=== PATIENT | female | born 1965 | race Caucasian/White ===

== ENCOUNTER 2016-12-22 14:11 | Outpatient (CLI) | payer OTHER ==
[2016-07-02 17:27] VITALS: BP 91/51
[2016-12-22 14:32] LABS: eGFR (African) > 60; eGFR (Non-African) > 60
[2016-12-22 15:19] LABS: BASOPHILS % 0.4 (0.0-1.5); EOSINOPHILS % 4.6 % (0.0-6.8); MEAN CORPUSCULAR HEMOGLOBIN 28.2 pg (28.0-34.0); MEAN CORPUSCULAR VOLUME 88.2 fl (80.0-100.0); NEUTROPHILS # 5.1 # k/uL (1.4-7.7)
== END 2016-12-22 14:12 ==
LOC: LABRHC 14:11
PROVIDERS: ATTEND Physician Assistant
DX: R06.02 Shortness of breath (principal)
CPT/HCPCS: 80053; 83880; 85025

== ENCOUNTER 2017-01-09 09:09 | Inpatient (IN) | payer OTHER ==
[2017-01-09] MEDS ORDERED: fentaNYL CITRATE/PF 100 MCG/ 2ML AMP IVP ONE (09:53)
[2017-01-09 10:12] LABS: BASOPHILS % 0.5 (0.0-1.5); EOSINOPHILS % 2.4 % (0.0-6.8); MEAN CORPUSCULAR HEMOGLOBIN 28.6 pg (28.0-34.0); MEAN CORPUSCULAR VOLUME 87.4 fl (80.0-100.0); NEUTROPHILS # 6.2 # k/uL (1.4-7.7)
[2017-01-09] MEDS ORDERED: cefTRIAXone SODIUM ADVANTAGE 1 GM VIAL.PORT IV ONE (10:23)
[2017-01-09] MEDS ORDERED: 0.9 % SODIUM CHLORIDE 100 ML IV ONE (10:24)
[2017-01-09 10:27] LABS: eGFR (African) > 60; eGFR (Non-African) > 60
[2017-01-09] MEDS: cefTRIAXone SODIUM 1 GM in 0.9 % SODIUM CHLORIDE 50 ML IV SCH (10:28)
--- NOTE | 2017-01-09 11:14 | ED Physician Documentation ---
General Adult - HISTORIAN Historian: patient - HPI Stated Complaint: Bilateral Leg Pain Chief Complaint: Lower Extremity Problem Onset: other (3-4 weeks) Timing: still present Further Comments: yes (Patienthad been having some swelling and weeping from both legs. Has been felt to have soem cellulitius to the lower extremities. Was started on some Cipro and diclofenac. Seems to help some. Over the last 24-48 hours has started to have some increasing pain and redness, and pain.) - ROS CONST: fever, chills CVS/RESP: denies: chest pain, shortness of breath GI/: denies: abdominal pain, problems urinating, nausea - PAST HX Past History: COPD, CHF, hypertension, other (heart murmur) Other History: other (sleep apnea, bipolar, ) Surgeries/Procedures: BTL, other (tonsilectomy, partial hysterrectomy) Immunizations: denies: influenza, pneumovax Allergies/Adverse Reactions: Allergies Allergy/AdvReac Type Severity Reaction Status Date / Time olmesartan medoxomil Allergy Severe Anaphylaxis Verified 07/02/16 14:40 [From Benicar] Penicillins Allergy Severe Anaphylaxis Verified 07/02/16 14:40 Sulfa (Sulfonamide Allergy Intermediate Hives Verified 07/02/16 14:40 Antibiotics) [Sulfa(Sulfonamide Antibiotics)] fluticasone propionate Allergy Mild Rash, mild Verified 07/02/16 14:40 [From Advair Diskus] salmeterol xinafoate Allergy Mild Rash, mild Verified 07/02/16 14:40 [From Advair Diskus] Home Medications: Ambulatory Orders Medication Instructions Recorded Venlafaxine HCl [Effexor Xr] 150 mg PO DAILY #30 av 02/03/13 Lisinopril [Prinivil] 10 mg PO DAILY 07/02/16 Albuterol Sulfate [Proair HFA] 01/09/17 Furosemide [Lasix] 40 mg PO DAILY 01/09/17 - SOCIAL HX Smoking History: non-smoker Alcohol Use: none Drug Use: none - FAMILY HX Family History: Yes (breast, asthma cancer mother) - VITAL SIGNS Vital Signs: Vital Signs Temp Pulse Resp BP Pulse Ox 98.1 F 118 H 20 134/61 95 01/09/17 09:10 01/09/17 09:10 01/09/17 09:10 01/09/17 09:10 01/09/17 09:10 - REVIEWED ASSESSMENTS Nursing Assessment Reviewed: Yes Vitals Reviewed: Yes General Adult Physical Exam - PHYSICAL EXAM GENERAL APPEARANCE: moderate distress NECK: normal inspection RESPIRATORY: no resp distress, chest non-tender, breath sounds normal. No: wheezes, rales, rhonchi CVS: reg rate & rhythm, heart sounds normal, equal pulses, no murmur, no gallop ABDOMEN: soft, no organomegaly, normal bowel sounds, no abdominal bruit, no distension, non-tender SKIN: other (multiple open wounds that are weeping to the posterior claf area. Erythema to the calves bialterally) EXTREMITIES: other (swelling bilateral) NEURO: oriented X3, CN's nml as tested, mood/affect nml, cognition normal Discharge Clincal Impression: Cellulitis of leg without foot Referrals: Be Lugo PA [PHYSICIAN CRAB PICKER] - 2 Days Home Medications: Ambulatory Orders Venlafaxine HCl [Effexor Xr] 150 mg PO DAILY #30 av 02/03/13 Lisinopril [Prinivil] 10 mg PO DAILY 07/02/16 Albuterol Sulfate [Proair HFA] 01/09/17 Furosemide [Lasix] 40 mg PO DAILY 01/09/17 Condition: Stable Disposition: ADMITTED INPATIENT Decision to Admit: [id number] Date of Decison to Admit: 01/09/17 Decision Time: 11:11
[2017-01-09] MEDS ORDERED: ALBUTEROL 90MCG/PUFF INHALER IH PRN (12:04)
[2017-01-09] MEDS ORDERED: LISINOPRIL 5 MG TABLET PO ONE (12:11)
[2017-01-09] MEDS ORDERED: QUEtiapine FUMARATE 25 MG TABLET PO ONE (12:16)
[2017-01-09] MEDS: ENOXAPARIN SODIUM 30 MG/0.3 ML DISP.SYRIN SQ SCH (13:00)
[2017-01-09 13:03] VITALS: BMI 54.8
[2017-01-09] MEDS: ACETAMINOPHEN 325 MG TABLET PO PRN ×2 (13:05→21:13)
[2017-01-09] MEDS ORDERED: ENOXAPARIN SODIUM 30 MG/0.3 ML DISP.SYRIN SQ ONE ×2 (13:25→21:15)
[2017-01-09] MEDS: traMADol HCL 50 MG TABLET PO PRN ×2 (14:45→20:14)
[2017-01-09] MEDS ORDERED: METOPROLOL TARTRATE 50 MG TABLET ONE (18:26)
--- NOTE | 2017-01-09 18:50 | History and Physical Report ---
History of Present Illnes - History of Present Illness Reason for Visit: Lower extremity wounds with assocaited infection. Pt failed outpatient tx History of Present Illness: 51 year old female arrived at the ER by cab this morning for bilateral lower extremity edema with weeping wounds on both legs. She notes she has been being treated in outpatient clinic for this issue for the last month. She notes she is currently taking ciprofloxacin and has been wrapping her legs. She states she was seen twice for Unna Boot changes. She notes initially the areas seemed to be getting better but now are worse again with increased redness in both lower legs. She notes this has been a issue she has been battling over the last several years with the most recent issues starting about one month ago. She notes she has a history of CHF and is on Diuretics to aid with lower extremity swelling when she remembers to take them. She denies any formal diagnosis of diabetes but notes recent blood work showed an elevated blood glucose. She states she has been trying to diet and has lost a few pounds recently. She denies any shortness of breath at time of interview but does have her albuterol inhaler at bedside as she has a history of asthma. She notes she does have a small ulcer on her left carrera that is painful. She states both of her legs are sore to touch. She denies any other concerns at time of interview. - Past Medical History Cardiac: CHF, HTN Pulmonary: Asthma COTTON JAMMER: denies: Seizure Gastrointestinal: denies: Constipation, GI bleed Psych: Anxiety, Bipolar, Depression, Panic Musculoskeletal: Osteoarthritis Rheumatologic: denies: Rheumatoid arthritis Endocrine: denies: Diabetes (Recent blood glucose levels have been elevated) Dermatology: Other (infection in lower legs) - Past Surgical History Past Surgical History: Hysterectomy (total), Tubal Ligation, Other ( Tonsillectomy) - Past Social History Smoke: Quit (10 years ago but lives with a 1-2ppd smoker who smokes in the house ) Alcohol: None Drugs: None Lives: With Family - Health Maintenance Health Maintenance: Pneumococcal Vaccine, Mammogram (last year), Colonoscopy ( several year). denies: Influenza Vaccine Pneumonia Vaccine: No Resuscitation Status: Full Code Review of Systems - Review of Systems Constitutional: Fever (last week 99 no fever today). negative: Chills Eyes: negative: vision change, conjunctivae inflammation ENT: Nose Congestion (mild). negative: Ear Pain, Nose Pain, Nose Discharge, Throat Pain Respiratory: Cough (Chronic). negative: Shortness of Breath Cardiovascular: negative: Chest Pain, Light Headedness Gastrointestinal: negative: Nausea, Vomiting, Diarrhea, Constipation Genitourinary: negative: Dysuria, Frequency, Incontinence Musculoskeletal: Leg Pain (related to the infection) Skin: Other (weeping lesions on bilateral lower extremities. ulcer on left lower carrera) Neurological: Weakness (generalized) - Medications/Allergies Allergies/Adverse Reactions: Allergies Allergy/AdvReac Type Severity Reaction Status Date / Time olmesartan medoxomil Allergy Severe Anaphylaxis Verified 07/02/16 14:40 [From Benicar] Penicillins Allergy Severe Anaphylaxis Verified 07/02/16 14:40 Sulfa (Sulfonamide Allergy Intermediate Hives Verified 07/02/16 14:40 Antibiotics) [Sulfa(Sulfonamide Antibiotics)] fluticasone propionate Allergy Mild Rash, mild Verified 07/02/16 14:40 [From Advair Diskus] salmeterol xinafoate Allergy Mild Rash, mild Verified 07/02/16 14:40 [From Advair Diskus] Home Medications: Home Medications Albuterol Sulfate [Proair HFA] 01/09/17 Furosemide [Lasix] 40 mg PO DAILY 01/09/17 Current Inpatient Medications: Current Inpatient Medications Acetaminophen (Tylenol) 650 mg PO Q6 PRN PRN Reason: PAIN Albuterol (Ventolin Hfa) 2 puff IH Q4-6 PRN PRN Reason: Wheezing Enoxaparin Sodium (Lovenox) 30 mg SQ Q12H [facility] Stop: 01/16/17 00:01 Furosemide (Lasix) 40 mg PO DAILY [facility] Hydroxyzine HCl (Atarax) 100 mg PO HS [facility] Hydroxyzine HCl (Atarax) 50 mg PO DAILY [facility] Ceftriaxone Sodium 1 gm/ (Sodium Chloride) 50 mls @ 100 mls/hr IV QD [facility] Last Admin: 01/09/17 10:28 Dose: 100 mls/hr Lisinopril (Prinivil) 10 mg PO DAILY ONE Stop: 01/09/17 12:12 Metolazone (Zaroxolyn) 10 mg PO DAILY [facility] Metoprolol Tartrate (Lopressor) 25 mg PO BID [facility] Quetiapine Fumarate (Seroquel) 200 mg PO HS ONE Stop: 06/03/17 12:17 Venlafaxine HCl (Effexor Xr) 150 mg PO DAILY [facility]ALL Exam - Exam Vital Signs: Vital Signs (72 hours) 01/09/17 11:20 Pulse Rate [ 98 H Pulse ox] Respiratory 18 Rate Blood Pressure 120/58 [Left Arm] O2 Sat by Pulse 96 Oximetry General: Alert, Oriented to Person, Oriented to Place, Oriented to Time, Cooperative, No acute distress, Morbidly Obese HEENT: Atraumatic, EOMI, Mouth Mucous membr. moist/[place], Nose Mucous membr. moist/[place] Neck: Normal Range of Motion Lungs: Speaks full Sentences, Wheezes (very mild), Decreased Air Movement Cardiovascular: Murmur (Followed by Dr. Valle) Murmur: Systolic Murmur Peripheral Edema: Bilateral peripheral edema with oozing open areas. Peripheral Pulses: diminished Abdomen: Normal bowel sounds, Soft, No tenderness Integumentary: [place], Cellulitis (lower extremities.), Ulcer (approximatley 2cm stage 2 ulcer on left lower carrera), Erythema (Bilateral lower extremities) Extremities: No edema (bilateral ). No: No clubbing, No cyanosis Neurological: Normal speech, Strength Equal Bilat, Generalized Weakness Psych/Mental Status: Mental status NL, Mood NL, Appropriate Affect - Laboratory Results Laboratory Results: Active Medications Generic Name Dose Route Start Last Admin Trade Name Freq PRN Reason Stop Dose Admin Acetaminophen 650 mg 01/09/17 12:02 Tylenol PO Q6 PRN PAIN Albuterol 2 puff 01/09/17 12:04 Ventolin Hfa IH Q4-6 PRN Wheezing Enoxaparin Sodium 30 mg 01/09/17 12:00 Lovenox SQ 01/16/17 00:01 Q12H NIALL Furosemide 40 mg 01/10/17 09:00 Lasix PO DAILY [facility] Hydroxyzine HCl 100 mg 01/09/17 21:00 Atarax PO HS [facility] Hydroxyzine HCl 50 mg 01/10/17 09:00 Atarax PO DAILY [facility] Ceftriaxone Sodium 1 gm/ 50 mls @ 100 mls/hr 01/09/17 11:00 01/09/17 10:28 Sodium Chloride IV 100 mls/hr QD NIALL Administration Lisinopril 10 mg 01/09/17 12:11 Prinivil PO 01/09/17 12:12 DAILY ONE Metolazone 10 mg 01/10/17 09:00 Zaroxolyn PO DAILY NIALL Metoprolol Tartrate 25 mg 01/09/17 21:00 Lopressor PO BID [facility]ALL Quetiapine Fumarate 200 mg 01/09/17 12:16 Seroquel PO 01/09/17 12:17 HS ONE Venlafaxine HCl 150 mg 01/10/17 09:00 Effexor Xr PO DAILY NIALL Active Orders 01/09/17 PT EVALUATION Stat 01/09/17 09:42 Place IV Lock 1T 01/09/17 09:50 BLOOD CULTURE Routine 01/09/17 11:00 [id number] SODIUM [Rocephin] 1 gm 0.9 % Sodium Chloride [Sodium Chloride] 50 ml IV QD 01/09/17 11:09 Document Bowel Movement Q8H 01/09/17 11:15 Dr. Gonzalez NOW Inpatient (Anticipate > 2 Midnight Stay) NOW 01/09/17 12:00 Enoxaparin Sodium [Lovenox] 30 mg SQ Q12H 01/09/17 12:02 Acetaminophen [Tylenol] 650 mg PO Q6 PRN 01/09/17 12:04 Albuterol [Ventolin Hfa] 2 puff IH Q4-6 PRN 01/09/17 12:11 Lisinopril [Prinivil] 10 mg PO DAILY ONE 01/09/17 12:16 QUEtiapine FUMARATE [Seroquel] 200 mg PO HS ONE 01/09/17 21:00 Hydroxyzine HCl [Atarax] 100 mg PO HS Metoprolol Tartrate [Lopressor] 25 mg PO BID 01/09/17 Lunch No Concentrated Sweets 01/10/17 BMP Routine CBC PLATELETS NO DIFF Routine 01/10/17 09:00 Furosemide [Lasix] 40 mg PO DAILY Hydroxyzine HCl [Atarax] 50 mg PO DAILY Metolazone [Zaroxolyn] 10 mg PO DAILY Venlafaxine HCl [Effexor Xr] 150 mg PO DAILY Problems Cellulitis of leg without foot (Acute) Vitals Signs Temp Pulse Resp BP Pulse Ox 99.9 F H 118 H 22 118/51 94 01/09/17 11:57 01/09/17 11:57 01/09/17 11:57 01/09/17 11:57 01/09/17 11:57 Recent Lab Results WBC 8.90 K/ul (4.00-12.00) 01/09/17 09:50 RBC 4.31 M/ul (3.90-5.20) 01/09/17 09:50 Hgb 12.3 g/dL (12.0-16.0) 01/09/17 09:50 Hct 37.7 % (34.5-46.5) 01/09/17 09:50 MCV 87.4 fl (80.0-100.0) 01/09/17 09:50 MCH 28.6 pg (28.0-34.0) 01/09/17 09:50 MCHC 32.7 g/dL (30.0-36.0) 01/09/17 09:50 RDW 14.4 % (11.3-14.3) H 01/09/17 09:50 Plt Count 255 K/mm3 (130-400) 01/09/17 09:50 Neut % (Auto) 70.3 % (39.0-79.0) 01/09/17 09:50 Lymph % (Auto) 18.0 % (16.0-50.0) 01/09/17 09:50 [place] % (Auto) 7.0 % (0.0-11.0) 01/09/17 09:50 Eos % (Auto) 2.4 % (0.0-6.8) 01/09/17 09:50 Baso % (Auto) 0.5 (0.0-1.5) 01/09/17 09:50 Neut # 6.2 # k/uL (1.4-7.7) 01/09/17 09:50 Lymph # 1.6 # k/uL (0.6-4.0) 01/09/17 09:50 [place] # 0.6 # k/uL (0.0-0.9) 01/09/17 09:50 Eos # 0.2 # k/uL (0.0-0.6) 01/09/17 09:50 Baso # 0.0 # k/uL (0.0-0.5) 01/09/17 09:50 Reactive Lymphs % 1.9 % (0.0-5.0) 01/09/17 09:50 Reactive Lymphs # 0.2 # k/uL (0.0-0.8) 01/09/17 09:50 Sodium 137 mmol/L (136-145) 01/09/17 09:50 Potassium 3.7 mmol/L (3.5-5.0) 01/09/17 09:50 Chloride 107 mmol/L (98-110) 01/09/17 09:50 Carbon Dioxide 28 mmol/L (20-32) 01/09/17 09:50 BUN 14 mg/dL (10-26) 01/09/17 09:50 Creatinine 0.7 mg/dL (0.4-1.5) 01/09/17 09:50 Estimated Creat Clear 277 01/09/17 09:50 Est GFR ( Amer) > 60 (60-) 01/09/17 09:50 Est GFR (Non-Af Amer) > 60 (60-) 01/09/17 09:50 Glucose 142 mg/dL (70-99) H 01/09/17 09:50 Calcium 10.2 mg/dL (8.5-10.5) 01/09/17 09:50 Total Bilirubin 0.3 mg/dL (0.2-1.2) 01/09/17 09:50 AST 26 U/L (0-41) 01/09/17 09:50 ALT 16 U/L (0-45) 01/09/17 09:50 Alkaline Phosphatase 71 U/L (46-116) 01/09/17 09:50 Total Protein 8.1 g/dL (6.0-8.5) 01/09/17 09:50 Albumin 4.3 g/dL (3.0-5.5) 01/09/17 09:50 Assessment/Plan - Assessment/Plan (1) Cellulitis of leg without foot Status: Acute Current Visit: Yes Assessment: Spreading erythema of bilateral lower extremity. Weeping wounds of bilateral lower extremity. Approximately 2cm ulceration of the left carrera. WBC count is normal. Patient has failed outpatient treatment of oral antibiotics and Unna Boots. Plan: IV Ceftriaxone QD. Apply vasoline gauze, and gauze wrapping at night. Will apply Brian bandage for moderate compression to assist with swelling. Bandage will be changed daily and wounds will be reassessed daily. (2) CHF (congestive heart failure) Status: Acute Current Visit: Yes Qualifiers: Congestive heart failure type: systolic Congestive heart failure chronicity : chronic Qualified Code(s): I50.22 - Chronic systolic (congestive) heart failure Assessment: 2+ pitting edema of bilateral lower extremity. Patient denies any SOB at time of admission. Lungs have mild expiratory wheezing which is baseline for patient. She has inhaler at bedside. Plan: Brian bandage for compression Qam. Will start by giving patients home dose of Diuretics and will monitor kidney function (kidney function normal at time of admission). Will reassess daily. (3) Hyperglycemia Status: Acute Current Visit: Yes Assessment: Last 2 blood glucose readings were elevated. Patient denies any history of diabetes. Plan: Will monitor blood glucose. Patient placed on no concentrated sweet diet. Will strive for tight glycemic control considering infections of lower extremities. (4) Noncompliance Status: Acute Current Visit: No Assessment: Patient has a long history of noncompliance with her medications (especially diuretics) and diet. 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 She states she did take her antibiotics as she was directed. Plan: Stress the importance of compliance with her medication and diet for healing of her wounds and getting fluid off of her legs. Will discuss with patient daily. VTE Assessment - RISK FACTOR SCORE VTE <18 YEARS OF AGE: PATIENT IS < 18 YEARS OF AGE VTE RISK FACTOR SCORES: AGE 40-60 YEARS, OBESITY, CONGESTIVE HEART FAILURE OR MYOCARDIAL INFARCTION, LEG SWELLING, ULCERS, VARICOSE VEINS - RISK VTE VERY HIGH RISK: SCORE OF 5+ (RISK PROXIMAL DVT 10-20%+) PROPHYLAXIS NEEDED ( ordred)
[2017-01-09] MEDS ORDERED: ALBUTEROL SULFATE 2.5 MG/0.5 ML AMPUL.NEB NEB PRN (18:52)
[2017-01-09] MEDS: METOPROLOL TARTRATE 25 MG TABLET PO SCH (21:05)
[2017-01-09] MEDS: HYDROXYZINE HCL 25 MG TABLET PO SCH (21:06)
[2017-01-09] MEDS: QUEtiapine FUMARATE 25 MG TABLET PO SCH (21:07)
[2017-01-10] MEDS: ENOXAPARIN SODIUM 30 MG/0.3 ML DISP.SYRIN SQ SCH ×3 (00:22→20:09)
[2017-01-10] MEDS ORDERED: METOPROLOL TARTRATE 50 MG TABLET ONE ×4 (04:03→21:35)
[2017-01-10] MEDS ORDERED: FUROSEMIDE 40 MG TABLET PO ONE (04:03)
[2017-01-10] MEDS ORDERED: ENOXAPARIN SODIUM 30 MG/0.3 ML DISP.SYRIN SQ ONE ×2 (04:03→14:41)
[2017-01-10] MEDS: ACETAMINOPHEN 325 MG TABLET PO PRN ×3 (06:41→19:52)
[2017-01-10] MEDS: traMADol HCL 50 MG TABLET PO PRN ×3 (06:41→19:52)
[2017-01-10 07:01] LABS: MEAN CORPUSCULAR VOLUME 91.8 fl (80.0-100.0)
[2017-01-10 07:14] LABS: eGFR (African) > 60; eGFR (Non-African) > 60
[2017-01-10] MEDS ORDERED: LURASIDONE HCL 40 MG PO SCH (09:00)
[2017-01-10] MEDS ORDERED: FUROSEMIDE 40 MG TABLET PO SCH (09:00)
[2017-01-10] MEDS: HYDROXYZINE HCL 25 MG TABLET PO SCH ×2 (09:02→19:53)
[2017-01-10] MEDS: VENLAFAXINE HCL 37.5 MG CAP.ER.24H PO SCH (09:03)
[2017-01-10] MEDS: POTASSIUM CHLORIDE 20 MEQ TABLET.ER PO SCH (09:03)
[2017-01-10] MEDS: METOPROLOL TARTRATE 25 MG TABLET PO SCH ×2 (09:04→19:55)
[2017-01-10] MEDS: METOLAZONE 2.5 MG TABLET PO SCH (09:04)
[2017-01-10] MEDS ORDERED: cefTRIAXone SODIUM ADVANTAGE 1 GM VIAL.PORT IV ONE (11:08)
[2017-01-10] MEDS ORDERED: NORMAL SALINE ADD-VANTAGE 50 ML IV ONE (11:08)
[2017-01-10] MEDS: cefTRIAXone SODIUM 1 GM in 0.9 % SODIUM CHLORIDE 50 ML IV SCH (11:28)
[2017-01-10] MEDS ORDERED: FUROSEMIDE 20 MG/2 ML VIAL IVP ONE (14:00)
[2017-01-10] MEDS ORDERED: SALINE FLUSH 10 ML DISP.SYRIN IVF ONE ×2 (14:41→21:36)
[2017-01-10] MEDS ORDERED: BACLOFEN 10 MG TABLET PO ONE (14:42)
[2017-01-10] MEDS ORDERED: traZODone HCL 50 MG TABLET ONE (14:42)
--- NOTE | 2017-01-10 15:15 | Inpatient Progress Note ---
Subjective - Required Recertification Statement I anticipate X number of days because-include discharge plan: greater than 2 nights for wound care, IV antibiotics and lasix - Review of Systems Events since last encounter: She has had one round of antibiotics to help with infection in lower legs. Labs were drawn this morning and show kidney function is doing well and her WBC is still normal. Her blood glucose levels remain elevated this morning. She notes they did bring her chocolate cake with dinner last night despite being on a no concentrated sweets diet. She notes therapy saw her this morning and had her up and walking with a walker. They have recommend longterm care for therapy following her acute admission. She received her home lasix dose yesterday and this morning. Subjective: Patient states she slept well. She states her legs are still very sore but she thinks the swelling is mildly improved with compression wraps and diuretic dose. She now recalls removing her Unna boots a few days ago and re-wrapping the hilary bandages around both legs for compression. She notes when she pulled off the wraps they were stuck to the backs of her lower legs and seemed to pull the top layer of skin off with it. She notes the areas have been weeping since then. Her blood glucose levels remain elevated and she notes they did bring her chocolate cake with dinner last night despite being on a no concentrated sweets diet. She states the tramadol with tylenol is helping but seems to wear off before the next dose is due. She continues to deny any SOB despite significant lower extremity edema. She notes therapy saw her this morning and had her up and walking with a walker. She notes she feels much more stable with the walker than with her cane. She denies any other concerns this morning. General: Denies: Chills, Night Sweats HEENT: Denies: Head Aches, Visual Changes, Sore Throat Pulmonary: Cough (chronic). Denies: Dyspnea Cardiovascular: Denies: Chest Pain, Palpitations, Light Headedness Gastrointestinal: Denies: Nausea, Vomiting, Abdominal Pain, Diarrhea, Constipation Genitourinary: Denies: Dysuria, Frequency Musculoskeletal: Leg Pain (bilateral due to weeping wounds on both calfs with associated infection) Neurological: Weakness (generalized debility). Denies: Change in Speech, Confusion, Seizures Objective - Exam Vitals and I&O: Vital Signs Temp 97 F L 01/10/17 14:00 Pulse 94 H 01/10/17 14:00 Resp 18 01/10/17 14:00 BP 140/49 01/10/17 14:00 Pulse Ox 93 01/10/17 14:00 Intake & Output 01/09/17 01/10/17 01/10/17 23:59 11:59 23:59 Intake Total 1800 360 240 Balance 1800 360 240 Intake: Oral 1800 360 240 Other: Voiding Method Toilet # Voids 1 General: Alert, Oriented to Person, Oriented to Place, Oriented to Time, Cooperative, No acute distress, Morbidly Obese HEENT: Atraumatic, EOMI, Mouth Mucous membr. moist/[place] Neck: Supple Lungs: Speaks full Sentences, Wheezes (very mild), Decreased Air Movement Cardiovascular: Murmur (systolic) Abdomen: Normal bowel sounds, Soft, No tenderness Extremities: No clubbing, No cyanosis. No: No edema (2+ pitting edema of bilateral lower extremity), No tenderness/swelling Skin: Warm, Cellulitis (bilateral lower extremitity), Ulcer (1.5cm left lower carrera), Other (traumatic ulceration of bilateral lower extremity from dressing removal by patient REAR ADMIRAL in ER yesterday. wounds are weeping and associated with surrounding erythema and tenderness even with light touch.) Neurological: Sensation intact, Generalized Weakness (walking with walker with PT ) Psych/Mental Status: Mental status NL, Mood NL - Results Results: Laboratory Results WBC 7.40 K/ul (4.00-12.00) 01/10/17 06:50 RBC 4.55 M/ul (3.90-5.20) 01/10/17 06:50 Hgb 12.7 g/dL (12.0-16.0) 01/10/17 06:50 Hct 41.8 % (34.5-46.5) 01/10/17 06:50 MCV 91.8 fl (80.0-100.0) 01/10/17 06:50 MCH 28.0 pg (28.0-34.0) 01/10/17 06:50 MCHC 30.5 g/dL (30.0-36.0) 01/10/17 06:50 RDW 14.1 % (11.3-14.3) 01/10/17 06:50 Plt Count 257 K/mm3 (130-400) 01/10/17 06:50 Neut % (Auto) 70.3 % (39.0-79.0) 01/09/17 09:50 Lymph % (Auto) 18.0 % (16.0-50.0) 01/09/17 09:50 [place] % (Auto) 7.0 % (0.0-11.0) 01/09/17 09:50 Eos % (Auto) 2.4 % (0.0-6.8) 01/09/17 09:50 Baso % (Auto) 0.5 (0.0-1.5) 01/09/17 09:50 Neut # 6.2 # k/uL (1.4-7.7) 01/09/17 09:50 Lymph # 1.6 # k/uL (0.6-4.0) 01/09/17 09:50 [place] # 0.6 # k/uL (0.0-0.9) 01/09/17 09:50 Eos # 0.2 # k/uL (0.0-0.6) 01/09/17 09:50 Baso # 0.0 # k/uL (0.0-0.5) 01/09/17 09:50 Reactive Lymphs % 1.9 % (0.0-5.0) 01/09/17 09:50 Reactive Lymphs # 0.2 # k/uL (0.0-0.8) 01/09/17 09:50 Sodium 135 mmol/L (136-145) L 01/10/17 06:50 Potassium 3.7 mmol/L (3.5-5.0) 01/10/17 06:50 Chloride 100 mmol/L (98-110) 01/10/17 06:50 Carbon Dioxide 28 mmol/L (20-32) 01/10/17 06:50 BUN 9 mg/dL (10-26) L 01/10/17 06:50 Creatinine 0.8 mg/dL (0.4-1.5) 01/10/17 06:50 Estimated Creat Clear 242 01/10/17 06:50 Est GFR ( Amer) > 60 (60-) 01/10/17 06:50 Est GFR (Non-Af Amer) > 60 (60-) 01/10/17 06:50 Glucose 128 mg/dL (70-99) H 01/10/17 06:50 Calcium 9.8 mg/dL (8.5-10.5) 01/10/17 06:50 Total Bilirubin 0.3 mg/dL (0.2-1.2) 01/09/17 09:50 AST 26 U/L (0-41) 01/09/17 09:50 ALT 16 U/L (0-45) 01/09/17 09:50 Alkaline Phosphatase 71 U/L (46-116) 01/09/17 09:50 Total Protein 8.1 g/dL (6.0-8.5) 01/09/17 09:50 Albumin 4.3 g/dL (3.0-5.5) 01/09/17 09:50 Assessment/Plan - Assessment/Plan (1) Cellulitis of leg without foot Status: Acute Current Visit: Yes Assessment: Lower extremities are largely unchanged from yesterday afternoon. There are weeping wounds of both calfs and a weeping ulcer on left carrera. There is surrounding erythema to the lower extremity. Patient has had one dose of IV ceftriaxone yesterday. blood cultures are still pending though WBC count is normal. Plan: Second dose of ceftriaxone this morning. Patient will have a whirlpool treatment this afternoon as it reportedly helped with pain yesterday. (2) CHF (congestive heart failure) Status: Acute Current Visit: Yes Qualifiers: Congestive heart failure type: systolic Congestive heart failure chronicity : chronic Qualified Code(s): I50.22 - Chronic systolic (congestive) heart failure Assessment: Peripheral edema is mildly improved in ankle and foot but remains 2+ pitting today. Patient has had home dose of lasix yesterday and today. compression over dressings seems to be helping some. Plan: Lasix changed to IV dosing with additional dose ordered today. Compression wrapping will be reapplied after whirlpool treatment, and lasix dose will be increased tomorrow morning. (3) Hyperglycemia Status: Acute Current Visit: Yes Assessment: Patients fasting glucose remains elevated at 128. Patient drank several glasses of juice and had chocolate cake with dinner last night. Plan: Reminded patient and staff that she is to be on a low carb, low sugar diet. Encouraged water over juice and no cake with dinner. If sugar still slightly elevated tomorrow will consider starting oral agents for DM2 as patient is hesitant to start diabetes medication. (4) Noncompliance Status: Acute Current Visit: No Assessment: Patient remains non compliant with diet here as she has been drinking several glasses of juice and had chocolate cake with dinner despite knowing her sugars have been elevated and she was to be on a low carb, low sugar diet. 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 Plan: Discussed risks of elevated blood sugar with patient and need for compliance with both medication and diet to be able to heal her leg wounds. She voices understanding and states she will try to drink water instead and will skip dessert today.
[2017-01-10] MEDS: QUEtiapine FUMARATE 25 MG TABLET PO SCH (19:56)
[2017-01-10] MEDS ORDERED: DOCUSATE SODIUM 100 MG CAPSULE ONE (20:08)
[2017-01-10] MEDS ORDERED: IPRATROPIUM/ALBUTEROL SULFATE 3 ML AMPUL.NEB NEB ONE (22:42)
[2017-01-10] MEDS ORDERED: ALBUTEROL SULFATE 2.5 MG/3 ML AMPUL.NEB NEB ONE (22:45)
[2017-01-11] MEDS: traMADol HCL 50 MG TABLET PO PRN ×5 (00:52→17:42)
[2017-01-11] MEDS: ACETAMINOPHEN 325 MG TABLET PO PRN ×3 (01:39→17:42)
[2017-01-11 07:18] LABS: eGFR (African) > 60; eGFR (Non-African) > 60
[2017-01-11] MEDS: POTASSIUM CHLORIDE 20 MEQ TABLET.ER PO SCH (08:51)
[2017-01-11] MEDS: VENLAFAXINE HCL 37.5 MG CAP.ER.24H PO SCH (08:51)
[2017-01-11] MEDS: METOPROLOL TARTRATE 25 MG TABLET PO SCH ×2 (08:51→20:05)
[2017-01-11] MEDS: DOCUSATE SODIUM 100 MG CAPSULE PO SCH (08:51)
[2017-01-11] MEDS: METOLAZONE 2.5 MG TABLET PO SCH (08:51)
[2017-01-11] MEDS: HYDROXYZINE HCL 25 MG TABLET PO SCH ×2 (08:51→20:04)
[2017-01-11] MEDS: ENOXAPARIN SODIUM 30 MG/0.3 ML DISP.SYRIN SQ SCH ×2 (08:53→20:05)
[2017-01-11] MEDS: LURASIDONE HCL 40 MG PO SCH (08:53)
[2017-01-11] MEDS ORDERED: FUROSEMIDE 40 MG/4 ML VIAL IVP SCH (09:00)
[2017-01-11] MEDS ORDERED: POLYETHYLENE GLYCOL 3350 17 GM POWD.PACK PO PRN (11:00)
[2017-01-11] MEDS: cefTRIAXone SODIUM 1 GM in 0.9 % SODIUM CHLORIDE 50 ML IV SCH (11:45)
[2017-01-11] MEDS: HYDROcodone /APAP 5/325 1 EACH TABLET PO PRN (18:32)
[2017-01-11] MEDS: QUEtiapine FUMARATE 25 MG TABLET PO SCH (20:06)
[2017-01-11] MEDS ORDERED: cefTRIAXone SODIUM 1 GM in 0.9 % SODIUM CHLORIDE 50 ML IV SCH (21:00)
[2017-01-12] MEDS: HYDROcodone /APAP 5/325 1 EACH TABLET PO PRN ×2 (01:51→08:11)
[2017-01-12] MEDS ORDERED: METOPROLOL TARTRATE 50 MG TABLET ONE (05:44)
[2017-01-12 06:10] VITALS: BP 120/71
[2017-01-12] MEDS: POTASSIUM CHLORIDE 20 MEQ TABLET.ER PO SCH (08:09)
[2017-01-12] MEDS: METOLAZONE 2.5 MG TABLET PO SCH (08:09)
[2017-01-12] MEDS: VENLAFAXINE HCL 37.5 MG CAP.ER.24H PO SCH (08:09)
[2017-01-12] MEDS: DOCUSATE SODIUM 100 MG CAPSULE PO SCH (08:10)
[2017-01-12] MEDS: ENOXAPARIN SODIUM 30 MG/0.3 ML DISP.SYRIN SQ SCH (08:10)
[2017-01-12] MEDS: HYDROXYZINE HCL 25 MG TABLET PO SCH (08:10)
[2017-01-12] MEDS: METOPROLOL TARTRATE 25 MG TABLET PO SCH (08:10)
[2017-01-12] MEDS: LURASIDONE HCL 40 MG PO SCH (08:11)
--- NOTE | 2017-01-12 09:46 | Inpatient Progress Note ---
Date Seen: January 11, 2017 S: Juanis is having quite a bit of pain in her legs. She really has not been able to get up and ambulate very much. She spent most of the night sleeping in her chair. She would like to have a little bit stronger pain medication. She was unable to tolerate the whirlpool the last time they took her down there. She said initially that actually it was very good and it debrided quite a bit of tissue, but when they placed her in the whirlpool this time, it was extremely painful and she declines to do that further. She is unable to walk much more than just a few steps. She has lost about 15 pounds over the last few days while she has been in the hospital. She does have some pain in her left heel also, which has opened up and drained a little bit. O: On examination, her vital signs show her to have a temperature of 97.2, pulse of 94, respirations of 18, blood pressure is 142/70, pulse oximetry is 96 % on room air. HEENT shows the head to be normocephalic and atraumatic. Her dentition is in very poor repair. Mucous membranes are moist. No JVD is noted , although her body habitus significantly limits this examination. Her lungs have a few wheezes in all lung cullen. Her heart is in a regular rhythm. The previously noted murmur is unchanged. Her abdomen is soft. No guarding. No rebound. Extremities are warm and well perfused and currently they are wrapped. She does have open areas of ulcerations on the posterior aspects of both legs, as well as an open crack on her left lateral heel. She is spending most of the time with her heels resting on the floor. A: 1. Morbid obesity. 2. Cellulitis of bilateral lower extremities. 3. Hyperglycemia without previous diagnosis of diabetes. 4. Congestive heart failure. 5. Generalized noncompliance. P: 1. We will continue dressing changes to her legs. 2. Certainly at this point, she is unable to walk and we will probably need to skill her on discharge. 3. Continue current antibiotics. 4. Because of her body size, we will increase the Rocephin to b.i.d. dosing. MTDD
== END 2017-01-12 09:40 | disposition home or self-care (01) | DRG 603 ==
LOC: SUPCPDRO 09:09 → ED 09:09 → SOUTH 11:05
PROVIDERS: ADMIT Physician Assistant; ATTEND Family Medicine
DX: L03.116 Cellulitis of left lower limb (principal); Z68.43 Body mass index [BMI] 50.0-59.9, adult; L03.115 Cellulitis of right lower limb; R73.9 Hyperglycemia, unspecified; E66.01 Morbid (severe) obesity due to excess calories; I50.9 Heart failure, unspecified; Z91.11 Patient's noncompliance with dietary regimen; Z91.14 Patient's other noncompliance with medication regimen
CPT/HCPCS: 36415; 80048; 80053; 85025; 85027; 87040; 99223; 99232; 99238; 99283; 99284; J0696; J1650; J1940; J3010; A9270; A9270-GY; S1016

== ENCOUNTER 2017-01-12 09:40 | Inpatient (IN) | payer OTHER ==
[2017-01-12] MEDS ORDERED: traMADol HCL 50 MG TABLET ONE (11:34)
[2017-01-12] MEDS ORDERED: ACETAMINOPHEN 325 MG TABLET ONE (11:34)
[2017-01-12] MEDS ORDERED: ALBUTEROL SULFATE 200 PUFF INHALER INH PRN (11:44)
[2017-01-12 11:53] VITALS: BMI 54.6
[2017-01-12] MEDS: ACETAMINOPHEN 325 MG TABLET PO PRN (12:31)
[2017-01-12] MEDS ORDERED: SALINE FLUSH 10 ML DISP.SYRIN IVF ONE (12:33)
[2017-01-12] MEDS: HYDROcodone /APAP 5/325 1 EACH TABLET PO PRN ×3 (12:35→21:28)
[2017-01-12] MEDS: IPRATROPIUM/ALBUTEROL SULFATE 3 ML AMPUL.NEB NEB SCH ×3 (12:35→20:24)
[2017-01-12] MEDS: ENOXAPARIN SODIUM 30 MG/0.3 ML DISP.SYRIN SQ SCH (12:36)
[2017-01-12] MEDS: FUROSEMIDE 40 MG/4 ML VIAL IVP SCH (14:15)
[2017-01-12] MEDS ORDERED: METOPROLOL TARTRATE 50 MG TABLET ONE (16:59)
[2017-01-12] MEDS: QUEtiapine FUMARATE 25 MG TABLET PO SCH (20:03)
[2017-01-12] MEDS: cefTRIAXone SODIUM 1 GM in 0.9 % SODIUM CHLORIDE 50 ML IV SCH (20:08)
[2017-01-12] MEDS ORDERED: cefTRIAXone SODIUM 1 GM VIAL ONE (20:10)
[2017-01-12] MEDS ORDERED: 0.9 % SODIUM CHLORIDE 50 ML IV ONE (20:11)
[2017-01-12] MEDS: METOPROLOL TARTRATE 25 MG TABLET PO SCH (20:54)
[2017-01-13] MEDS: HYDROcodone /APAP 5/325 1 EACH TABLET PO PRN ×6 (01:18→23:54)
[2017-01-13] MEDS ORDERED: FUROSEMIDE 40 MG TABLET PO ONE (04:09)
[2017-01-13] MEDS ORDERED: METOPROLOL TARTRATE 50 MG TABLET ONE ×2 (04:10→14:08)
[2017-01-13] MEDS: cefTRIAXone SODIUM 1 GM in 0.9 % SODIUM CHLORIDE 50 ML IV SCH ×2 (08:49→19:44)
[2017-01-13] MEDS ORDERED: SALINE FLUSH 10 ML DISP.SYRIN IVF ONE ×2 (08:53→12:19)
[2017-01-13] MEDS: DOCUSATE SODIUM 100 MG CAPSULE PO SCH (09:00)
[2017-01-13] MEDS: METOPROLOL TARTRATE 25 MG TABLET PO SCH ×2 (09:01→19:46)
[2017-01-13] MEDS: VENLAFAXINE HCL 37.5 MG CAP.ER.24H PO SCH (09:01)
[2017-01-13] MEDS: POTASSIUM CHLORIDE 20 MEQ TABLET.ER PO SCH (09:01)
[2017-01-13] MEDS: LATUDA 40 MG PO SCH (09:02)
[2017-01-13] MEDS: LISINOPRIL 5 MG TABLET PO SCH (09:03)
[2017-01-13] MEDS: IPRATROPIUM/ALBUTEROL SULFATE 3 ML AMPUL.NEB NEB SCH ×4 (10:26→20:24)
[2017-01-13] MEDS: ACETAMINOPHEN 325 MG TABLET PO PRN (10:55)
[2017-01-13] MEDS: POLYETHYLENE GLYCOL 3350 17 GM POWD.PACK PO SCH (10:56)
[2017-01-13] MEDS: FUROSEMIDE 40 MG/4 ML VIAL IVP SCH (12:27)
[2017-01-13] MEDS: ENOXAPARIN SODIUM 30 MG/0.3 ML DISP.SYRIN SQ SCH (12:32)
[2017-01-13] MEDS: QUEtiapine FUMARATE 25 MG TABLET PO SCH (19:44)
[2017-01-14] MEDS ORDERED: METOPROLOL TARTRATE 50 MG TABLET ONE ×2 (04:02→13:51)
[2017-01-14] MEDS: HYDROcodone /APAP 5/325 1 EACH TABLET PO PRN ×4 (06:02→19:56)
[2017-01-14] MEDS: IPRATROPIUM/ALBUTEROL SULFATE 3 ML AMPUL.NEB NEB SCH ×4 (07:35→21:35)
[2017-01-14] MEDS: METOPROLOL TARTRATE 25 MG TABLET PO SCH ×2 (09:13→21:27)
[2017-01-14] MEDS: POTASSIUM CHLORIDE 20 MEQ TABLET.ER PO SCH (09:14)
[2017-01-14] MEDS: LATUDA 40 MG PO SCH (09:14)
[2017-01-14] MEDS: LISINOPRIL 5 MG TABLET PO SCH (09:15)
[2017-01-14] MEDS: VENLAFAXINE HCL 37.5 MG CAP.ER.24H PO SCH (09:16)
[2017-01-14] MEDS: DOCUSATE SODIUM 100 MG CAPSULE PO SCH (09:17)
[2017-01-14] MEDS: ACETAMINOPHEN 325 MG TABLET PO PRN ×2 (09:19→18:00)
[2017-01-14] MEDS ORDERED: cefTRIAXone SODIUM ADVANTAGE 1 GM VIAL.PORT IV ONE (09:42)
[2017-01-14] MEDS ORDERED: SALINE FLUSH 10 ML DISP.SYRIN IVF ONE ×4 (09:49→21:20)
[2017-01-14] MEDS: cefTRIAXone SODIUM 1 GM in 0.9 % SODIUM CHLORIDE 50 ML IV SCH ×2 (09:54→21:28)
[2017-01-14] MEDS: POLYETHYLENE GLYCOL 3350 17 GM POWD.PACK PO SCH (10:44)
[2017-01-14] MEDS: FUROSEMIDE 40 MG/4 ML VIAL IVP SCH (12:58)
[2017-01-14] MEDS: ENOXAPARIN SODIUM 30 MG/0.3 ML DISP.SYRIN SQ SCH (13:03)
[2017-01-14] MEDS: QUEtiapine FUMARATE 25 MG TABLET PO SCH (21:23)
[2017-01-15] MEDS: HYDROcodone /APAP 5/325 1 EACH TABLET PO PRN ×6 (00:52→21:22)
[2017-01-15] MEDS ORDERED: METOPROLOL TARTRATE 50 MG TABLET ONE ×2 (05:25→13:34)
[2017-01-15] MEDS: METOPROLOL TARTRATE 25 MG TABLET PO SCH ×2 (08:40→20:27)
[2017-01-15] MEDS: DOCUSATE SODIUM 100 MG CAPSULE PO SCH (08:41)
[2017-01-15] MEDS: VENLAFAXINE HCL 37.5 MG CAP.ER.24H PO SCH (08:41)
[2017-01-15] MEDS: POTASSIUM CHLORIDE 20 MEQ TABLET.ER PO SCH (08:41)
[2017-01-15] MEDS: LISINOPRIL 5 MG TABLET PO SCH (08:42)
[2017-01-15] MEDS: LATUDA 40 MG PO SCH (08:42)
[2017-01-15] MEDS: IPRATROPIUM/ALBUTEROL SULFATE 3 ML AMPUL.NEB NEB SCH ×3 (08:52→18:00)
[2017-01-15] MEDS: cefTRIAXone SODIUM 1 GM in 0.9 % SODIUM CHLORIDE 50 ML IV SCH ×2 (10:40→21:21)
[2017-01-15] MEDS ORDERED: SALINE FLUSH 10 ML DISP.SYRIN IVF ONE ×3 (11:07→19:57)
[2017-01-15] MEDS: POLYETHYLENE GLYCOL 3350 17 GM POWD.PACK PO SCH (13:37)
[2017-01-15] MEDS: ENOXAPARIN SODIUM 30 MG/0.3 ML DISP.SYRIN SQ SCH (13:40)
[2017-01-15] MEDS: FUROSEMIDE 40 MG/4 ML VIAL IVP SCH (13:43)
[2017-01-15] MEDS: ACETAMINOPHEN 325 MG TABLET PO PRN (20:07)
[2017-01-15] MEDS: QUEtiapine FUMARATE 25 MG TABLET PO SCH (21:22)
[2017-01-16] MEDS: IPRATROPIUM/ALBUTEROL SULFATE 3 ML AMPUL.NEB NEB SCH ×5 (00:06→22:25)
[2017-01-16] MEDS: HYDROcodone /APAP 5/325 1 EACH TABLET PO PRN ×6 (02:55→22:20)
[2017-01-16] MEDS ORDERED: SALINE FLUSH 10 ML DISP.SYRIN IVF ONE ×2 (04:59→19:43)
[2017-01-16] MEDS ORDERED: METOPROLOL TARTRATE 50 MG TABLET ONE ×2 (04:59→16:33)
[2017-01-16] MEDS: VENLAFAXINE HCL 37.5 MG CAP.ER.24H PO SCH (09:34)
[2017-01-16] MEDS: POTASSIUM CHLORIDE 20 MEQ TABLET.ER PO SCH (09:34)
[2017-01-16] MEDS: LISINOPRIL 5 MG TABLET PO SCH (09:34)
[2017-01-16] MEDS: DOCUSATE SODIUM 100 MG CAPSULE PO SCH (09:35)
[2017-01-16] MEDS: LATUDA 40 MG PO SCH (09:35)
[2017-01-16] MEDS: cefTRIAXone SODIUM 1 GM in 0.9 % SODIUM CHLORIDE 50 ML IV SCH ×2 (09:35→21:35)
[2017-01-16] MEDS: METOPROLOL TARTRATE 25 MG TABLET PO SCH ×2 (09:35→19:43)
[2017-01-16] MEDS: POLYETHYLENE GLYCOL 3350 17 GM POWD.PACK PO SCH (12:16)
[2017-01-16] MEDS: FUROSEMIDE 40 MG/4 ML VIAL IVP SCH (12:23)
[2017-01-16] MEDS: ENOXAPARIN SODIUM 30 MG/0.3 ML DISP.SYRIN SQ SCH (12:23)
[2017-01-16] MEDS ORDERED: FLUCONAZOLE 150 MG TABLET PO SCH (16:00)
[2017-01-16] MEDS: QUEtiapine FUMARATE 25 MG TABLET PO SCH (22:20)
[2017-01-17] MEDS: HYDROcodone /APAP 5/325 1 EACH TABLET PO PRN ×4 (04:52→21:06)
[2017-01-17] MEDS: LISINOPRIL 5 MG TABLET PO SCH (08:09)
[2017-01-17] MEDS: VENLAFAXINE HCL 37.5 MG CAP.ER.24H PO SCH (08:09)
[2017-01-17] MEDS: POTASSIUM CHLORIDE 20 MEQ TABLET.ER PO SCH (08:09)
[2017-01-17] MEDS: CEFUROXIME AXETIL 250 MG TABLET PO SCH ×2 (08:09→21:07)
[2017-01-17] MEDS: DOCUSATE SODIUM 100 MG CAPSULE PO SCH (08:09)
[2017-01-17] MEDS: METOPROLOL TARTRATE 25 MG TABLET PO SCH ×2 (08:10→21:08)
[2017-01-17] MEDS: LATUDA 40 MG PO SCH (08:10)
[2017-01-17] MEDS: IPRATROPIUM/ALBUTEROL SULFATE 3 ML AMPUL.NEB NEB SCH ×4 (08:13→21:00)
[2017-01-17] MEDS: POLYETHYLENE GLYCOL 3350 17 GM POWD.PACK PO SCH (11:37)
[2017-01-17] MEDS: ENOXAPARIN SODIUM 30 MG/0.3 ML DISP.SYRIN SQ SCH (12:41)
[2017-01-17] MEDS: FUROSEMIDE 40 MG TABLET PO SCH (12:41)
[2017-01-17] MEDS ORDERED: FLUCONAZOLE 150 MG TABLET PO ONE ×2 (15:33)
[2017-01-17] MEDS ORDERED: METOPROLOL TARTRATE 50 MG TABLET ONE (17:39)
[2017-01-17] MEDS: QUEtiapine FUMARATE 25 MG TABLET PO SCH (21:07)
[2017-01-18] MEDS: HYDROcodone /APAP 5/325 1 EACH TABLET PO PRN ×4 (06:02→19:20)
--- NOTE | 2017-01-18 08:30 | Inpatient Progress Note ---
Subjective - Required Recertification Statement I anticipate X number of days because-include discharge plan: 5 - Review of Systems Events since last encounter: Juanis is still walking but is only able to walke to the nurse's station and will likely need to be here this week and through next week. Her pain is better treated except during dressing changes. She is aware that she should not be asking for extra portions. her breathing is doing well witht the nebulizer treatments. I will check her labs in the am. General: Denies: Chills HEENT: Denies: Head Aches Pulmonary: Denies: Dyspnea, Cough Cardiovascular: Other (exertional dyspnea). Denies: Chest Pain, Palpitations Gastrointestinal: Denies: Nausea Genitourinary: Denies: Dysuria Musculoskeletal: Leg Pain. Denies: Neck Pain Neurological: Denies: Weakness, Confusion Objective - Exam Vitals and I&O: Vital Signs Temp 97.1 F L 01/17/17 20:05 Pulse 110 H 01/17/17 20:07 Resp 18 01/17/17 20:07 BP 97/60 01/17/17 20:05 Pulse Ox 96 01/17/17 20:05 Intake & Output 01/17/17 01/17/17 01/18/17 11:59 23:59 11:59 Intake Total 360 960 Balance 360 960 Weight 161.479 kg 166.922 kg Intake: Oral 360 960 Other: Voiding Method Toilet Toilet # Voids 4 4 3 General: Alert, Oriented to Person, Oriented to Place, Oriented to Time, Morbidly Obese HEENT: Atraumatic, PERRLA, EOMI Neck: Supple, No JVD Lungs: Clear to auscultation. No: Respiratory Distress Cardiovascular: Regular rate, Normal S1, Normal S2, Murmur (unchanged) Abdomen: Normal bowel sounds, Soft, No tenderness Extremities: Other (Dressings are in place. ) Skin: Normal, [place], Warm Assessment/Plan - Assessment/Plan (1) Morbid obesity Status: Acute Current Visit: Yes Assessment: Encouraged dietary moderation and weight loss (2) CHF (congestive heart failure) Status: Acute Current Visit: No Qualifiers: Congestive heart failure type: systolic Congestive heart failure chronicity : chronic Qualified Code(s): I50.22 - Chronic systolic (congestive) heart failure Assessment: Fairly well compensated (3) Cellulitis of leg without foot Status: Acute Current Visit: No Assessment: Will continue current antibiotic therapy (4) Dyspnea Status: Acute Current Visit: No Qualifiers: Dyspnea type: shortness of breath Qualified Code(s): R06.02 - Shortness of breath Assessment: Multifactorial due to obesity/deconditioning
[2017-01-18] MEDS: VENLAFAXINE HCL 37.5 MG CAP.ER.24H PO SCH (08:46)
[2017-01-18] MEDS: DOCUSATE SODIUM 100 MG CAPSULE PO SCH (08:46)
[2017-01-18] MEDS: POTASSIUM CHLORIDE 20 MEQ TABLET.ER PO SCH (08:46)
[2017-01-18] MEDS: CEFUROXIME AXETIL 250 MG TABLET PO SCH ×2 (08:47→19:16)
[2017-01-18] MEDS: LISINOPRIL 5 MG TABLET PO SCH (08:47)
[2017-01-18] MEDS: LATUDA 40 MG PO SCH (08:47)
[2017-01-18] MEDS: METOPROLOL TARTRATE 25 MG TABLET PO SCH ×2 (08:48→19:16)
[2017-01-18] MEDS: FUROSEMIDE 40 MG TABLET PO SCH (08:48)
[2017-01-18] MEDS: IPRATROPIUM/ALBUTEROL SULFATE 3 ML AMPUL.NEB NEB SCH ×4 (09:00→20:03)
[2017-01-18] MEDS: POLYETHYLENE GLYCOL 3350 17 GM POWD.PACK PO SCH (10:29)
[2017-01-18] MEDS: ENOXAPARIN SODIUM 30 MG/0.3 ML DISP.SYRIN SQ SCH (11:35)
[2017-01-18] MEDS ORDERED: METOPROLOL TARTRATE 50 MG TABLET ONE ×2 (17:13→20:57)
[2017-01-18] MEDS: ACETAMINOPHEN 325 MG TABLET PO PRN (19:19)
[2017-01-18] MEDS: QUEtiapine FUMARATE 25 MG TABLET PO SCH (19:19)
[2017-01-19] MEDS: HYDROcodone /APAP 5/325 1 EACH TABLET PO PRN ×5 (01:59→18:38)
[2017-01-19] MEDS: IPRATROPIUM/ALBUTEROL SULFATE 3 ML AMPUL.NEB NEB SCH ×4 (08:10→20:13)
[2017-01-19] MEDS: FUROSEMIDE 40 MG TABLET PO SCH (08:33)
[2017-01-19] MEDS: CEFUROXIME AXETIL 250 MG TABLET PO SCH ×2 (08:33→19:54)
[2017-01-19] MEDS: DOCUSATE SODIUM 100 MG CAPSULE PO SCH (08:34)
[2017-01-19] MEDS: POTASSIUM CHLORIDE 20 MEQ TABLET.ER PO SCH (08:34)
[2017-01-19] MEDS: LISINOPRIL 5 MG TABLET PO SCH (08:35)
[2017-01-19] MEDS: VENLAFAXINE HCL 37.5 MG CAP.ER.24H PO SCH (08:35)
[2017-01-19] MEDS: LATUDA 40 MG PO SCH (08:36)
[2017-01-19] MEDS: POLYETHYLENE GLYCOL 3350 17 GM POWD.PACK PO SCH (08:37)
[2017-01-19] MEDS: METOPROLOL TARTRATE 25 MG TABLET PO SCH ×2 (08:37→19:55)
[2017-01-19] MEDS: ENOXAPARIN SODIUM 30 MG/0.3 ML DISP.SYRIN SQ SCH (12:32)
[2017-01-19] MEDS ORDERED: METOPROLOL TARTRATE 50 MG TABLET ONE (14:37)
[2017-01-19] MEDS: ACETAMINOPHEN 325 MG TABLET PO PRN (19:54)
[2017-01-19] MEDS: QUEtiapine FUMARATE 25 MG TABLET PO SCH (19:54)
[2017-01-20] MEDS: HYDROcodone /APAP 5/325 1 EACH TABLET PO PRN ×5 (02:08→20:03)
[2017-01-20] MEDS ORDERED: METOPROLOL TARTRATE 50 MG TABLET ONE ×2 (02:56→13:50)
[2017-01-20] MEDS: CEFUROXIME AXETIL 250 MG TABLET PO SCH ×2 (08:41→20:03)
[2017-01-20] MEDS: DOCUSATE SODIUM 100 MG CAPSULE PO SCH (08:41)
[2017-01-20] MEDS: POTASSIUM CHLORIDE 20 MEQ TABLET.ER PO SCH (08:42)
[2017-01-20] MEDS: VENLAFAXINE HCL 37.5 MG CAP.ER.24H PO SCH (08:42)
[2017-01-20] MEDS: METOPROLOL TARTRATE 25 MG TABLET PO SCH ×2 (08:43→20:04)
[2017-01-20] MEDS: FUROSEMIDE 40 MG TABLET PO SCH (08:43)
[2017-01-20] MEDS: LATUDA 40 MG PO SCH (08:44)
[2017-01-20] MEDS: LISINOPRIL 5 MG TABLET PO SCH (08:44)
[2017-01-20] MEDS ORDERED: FLUCONAZOLE 150 MG TABLET PO ONE (09:00)
[2017-01-20] MEDS: IPRATROPIUM/ALBUTEROL SULFATE 3 ML AMPUL.NEB NEB SCH ×4 (09:09→20:46)
[2017-01-20] MEDS: POLYETHYLENE GLYCOL 3350 17 GM POWD.PACK PO SCH (11:13)
[2017-01-20] MEDS: ENOXAPARIN SODIUM 30 MG/0.3 ML DISP.SYRIN SQ SCH (11:41)
[2017-01-20] MEDS: QUEtiapine FUMARATE 25 MG TABLET PO SCH (20:03)
[2017-01-21] MEDS ORDERED: METOPROLOL TARTRATE 50 MG TABLET ONE ×3 (04:38→23:43)
[2017-01-21] MEDS: HYDROcodone /APAP 5/325 1 EACH TABLET PO PRN ×4 (08:12→21:46)
[2017-01-21] MEDS: POTASSIUM CHLORIDE 20 MEQ TABLET.ER PO SCH (09:01)
[2017-01-21] MEDS: METOPROLOL TARTRATE 25 MG TABLET PO SCH ×2 (09:01→21:06)
[2017-01-21] MEDS: FUROSEMIDE 40 MG TABLET PO SCH (09:01)
[2017-01-21] MEDS: DOCUSATE SODIUM 100 MG CAPSULE PO SCH (09:01)
[2017-01-21] MEDS: VENLAFAXINE HCL 37.5 MG CAP.ER.24H PO SCH (09:01)
[2017-01-21] MEDS: LISINOPRIL 5 MG TABLET PO SCH (09:01)
[2017-01-21] MEDS: LATUDA 40 MG PO SCH (09:02)
[2017-01-21] MEDS: CEFUROXIME AXETIL 250 MG TABLET PO SCH ×2 (09:02→21:06)
[2017-01-21] MEDS: IPRATROPIUM/ALBUTEROL SULFATE 3 ML AMPUL.NEB NEB SCH ×4 (09:40→21:00)
[2017-01-21] MEDS: POLYETHYLENE GLYCOL 3350 17 GM POWD.PACK PO SCH (12:08)
[2017-01-21] MEDS: ENOXAPARIN SODIUM 30 MG/0.3 ML DISP.SYRIN SQ SCH (13:05)
[2017-01-21] MEDS: GABAPENTIN 300 MG CAPSULE PO SCH ×2 (13:23→21:05)
[2017-01-21] MEDS: QUEtiapine FUMARATE 25 MG TABLET PO SCH (21:07)
[2017-01-22] MEDS: HYDROcodone /APAP 5/325 1 EACH TABLET PO PRN ×5 (05:38→23:30)
[2017-01-22] MEDS: DOCUSATE SODIUM 100 MG CAPSULE PO SCH (08:50)
[2017-01-22] MEDS: CEFUROXIME AXETIL 250 MG TABLET PO SCH ×2 (08:50→20:31)
[2017-01-22] MEDS: VENLAFAXINE HCL 37.5 MG CAP.ER.24H PO SCH (08:50)
[2017-01-22] MEDS: POTASSIUM CHLORIDE 20 MEQ TABLET.ER PO SCH (08:51)
[2017-01-22] MEDS: FUROSEMIDE 40 MG TABLET PO SCH (08:52)
[2017-01-22] MEDS: METOPROLOL TARTRATE 25 MG TABLET PO SCH ×2 (08:53→20:31)
[2017-01-22] MEDS: GABAPENTIN 300 MG CAPSULE PO SCH ×2 (08:54→20:31)
[2017-01-22] MEDS: LISINOPRIL 5 MG TABLET PO SCH (08:54)
[2017-01-22] MEDS: LATUDA 40 MG PO SCH (08:54)
[2017-01-22] MEDS: POLYETHYLENE GLYCOL 3350 17 GM POWD.PACK PO SCH (10:12)
[2017-01-22] MEDS: IPRATROPIUM/ALBUTEROL SULFATE 3 ML AMPUL.NEB NEB SCH ×4 (10:15→20:59)
[2017-01-22] MEDS ORDERED: METOPROLOL TARTRATE 50 MG TABLET ONE (13:41)
[2017-01-22] MEDS: ENOXAPARIN SODIUM 30 MG/0.3 ML DISP.SYRIN SQ SCH (14:15)
[2017-01-22] MEDS: QUEtiapine FUMARATE 25 MG TABLET PO SCH (20:31)
[2017-01-23] MEDS ORDERED: METOPROLOL TARTRATE 50 MG TABLET ONE (02:22)
[2017-01-23] MEDS: HYDROcodone /APAP 5/325 1 EACH TABLET PO PRN ×4 (07:40→20:51)
[2017-01-23] MEDS: DOCUSATE SODIUM 100 MG CAPSULE PO SCH (08:29)
[2017-01-23] MEDS: CEFUROXIME AXETIL 250 MG TABLET PO SCH ×2 (08:29→20:51)
[2017-01-23] MEDS: POTASSIUM CHLORIDE 20 MEQ TABLET.ER PO SCH (08:30)
[2017-01-23] MEDS: VENLAFAXINE HCL 37.5 MG CAP.ER.24H PO SCH (08:30)
[2017-01-23] MEDS: METOPROLOL TARTRATE 25 MG TABLET PO SCH ×2 (08:31→20:51)
[2017-01-23] MEDS: FUROSEMIDE 40 MG TABLET PO SCH (08:31)
[2017-01-23] MEDS: LATUDA 40 MG PO SCH (08:33)
[2017-01-23] MEDS: GABAPENTIN 300 MG CAPSULE PO SCH ×2 (08:33→20:51)
[2017-01-23] MEDS: LISINOPRIL 5 MG TABLET PO SCH (08:34)
[2017-01-23] MEDS: IPRATROPIUM/ALBUTEROL SULFATE 3 ML AMPUL.NEB NEB SCH ×4 (08:45→21:04)
[2017-01-23] MEDS: POLYETHYLENE GLYCOL 3350 17 GM POWD.PACK PO SCH (10:53)
[2017-01-23] MEDS: ENOXAPARIN SODIUM 30 MG/0.3 ML DISP.SYRIN SQ SCH (12:44)
[2017-01-23] MEDS ORDERED: METOPROLOL SUCCINATE 50 MG TAB.ER.24H PO ONE (13:14)
[2017-01-23] MEDS: QUEtiapine FUMARATE 25 MG TABLET PO SCH (20:51)
[2017-01-24] MEDS: HYDROcodone /APAP 5/325 1 EACH TABLET PO PRN ×4 (04:12→21:01)
[2017-01-24] MEDS ORDERED: METOPROLOL TARTRATE 50 MG TABLET ONE ×2 (05:03→12:44)
[2017-01-24] MEDS: POTASSIUM CHLORIDE 20 MEQ TABLET.ER PO SCH (08:34)
[2017-01-24] MEDS: CEFUROXIME AXETIL 250 MG TABLET PO SCH ×2 (08:34→21:00)
[2017-01-24] MEDS: VENLAFAXINE HCL 37.5 MG CAP.ER.24H PO SCH (08:34)
[2017-01-24] MEDS: DOCUSATE SODIUM 100 MG CAPSULE PO SCH (08:34)
[2017-01-24] MEDS: FUROSEMIDE 40 MG TABLET PO SCH (08:35)
[2017-01-24] MEDS: METOPROLOL TARTRATE 25 MG TABLET PO SCH ×2 (08:38→21:01)
[2017-01-24] MEDS: GABAPENTIN 300 MG CAPSULE PO SCH ×2 (08:39→21:00)
[2017-01-24] MEDS: LISINOPRIL 5 MG TABLET PO SCH (08:39)
[2017-01-24] MEDS: LATUDA 40 MG PO SCH (08:39)
[2017-01-24] MEDS: IPRATROPIUM/ALBUTEROL SULFATE 3 ML AMPUL.NEB NEB SCH ×4 (09:49→21:13)
[2017-01-24] MEDS: POLYETHYLENE GLYCOL 3350 17 GM POWD.PACK PO SCH (10:02)
[2017-01-24] MEDS: ENOXAPARIN SODIUM 30 MG/0.3 ML DISP.SYRIN SQ SCH (12:33)
[2017-01-24] MEDS: QUEtiapine FUMARATE 25 MG TABLET PO SCH (21:01)
[2017-01-25] MEDS: HYDROcodone /APAP 5/325 1 EACH TABLET PO PRN ×5 (01:49→21:05)
[2017-01-25] MEDS ORDERED: METOPROLOL TARTRATE 50 MG TABLET ONE ×3 (04:46→19:26)
[2017-01-25] MEDS: IPRATROPIUM/ALBUTEROL SULFATE 3 ML AMPUL.NEB NEB SCH ×4 (08:37→21:05)
[2017-01-25] MEDS: LISINOPRIL 5 MG TABLET PO SCH (08:50)
[2017-01-25] MEDS: VENLAFAXINE HCL 37.5 MG CAP.ER.24H PO SCH (08:50)
[2017-01-25] MEDS: POTASSIUM CHLORIDE 20 MEQ TABLET.ER PO SCH (08:50)
[2017-01-25] MEDS: FUROSEMIDE 40 MG TABLET PO SCH (08:50)
[2017-01-25] MEDS: LATUDA 40 MG PO SCH (08:51)
[2017-01-25] MEDS: METOPROLOL TARTRATE 25 MG TABLET PO SCH ×2 (08:51→21:05)
[2017-01-25] MEDS: DOCUSATE SODIUM 100 MG CAPSULE PO SCH (08:51)
[2017-01-25] MEDS: GABAPENTIN 300 MG CAPSULE PO SCH ×2 (08:51→21:05)
--- NOTE | 2017-01-25 09:21 | Inpatient Progress Note ---
Subjective - Required Recertification Statement I anticipate X number of days because-include discharge plan: 1 - Review of Systems Events since last encounter: Juanis is feeling better. She is still no compliant with her diet. She has gained 6 lb since her admission. She continues to ask for extra food, and on Wednesday , she got three portions and three desserts. We discussed referral for evaluation for bariatric surgery, and she says that she will consider this. [facility] which is a big gain from what she was able to do on admission. She is still in denial about how muc food that she is eating. General: Denies: Chills HEENT: Denies: Head Aches, Visual Changes Pulmonary: Denies: Dyspnea Cardiovascular: Denies: Chest Pain, Palpitations Gastrointestinal: Constipation. Denies: Nausea, Vomiting Genitourinary: Denies: Dysuria Musculoskeletal: Leg Pain. Denies: Neck Pain Neurological: Denies: Weakness, Numbness, Incoordination, Confusion Objective - Exam Vitals and I&O: Vital Signs Temp 96.4 F L 01/25/17 07:56 Pulse 105 H 01/25/17 07:56 Resp 18 01/25/17 07:56 BP 157/77 01/25/17 07:56 Pulse Ox 95 01/25/17 07:56 Intake & Output 01/24/17 01/24/17 01/25/17 11:59 23:59 11:59 Intake Total 360 1080 480 Balance 360 1080 480 Weight 160.935 kg 161.533 kg Intake: Oral 360 1080 480 Other: Voiding Method Toilet Toilet # Voids 2 2 General: Alert, Oriented to Person, Oriented to Place, Oriented to Time, Cooperative, Morbidly Obese HEENT: Atraumatic, PERRLA, EOMI Neck: Supple, No JVD Lungs: Clear to auscultation, Normal air movement, Speaks full Sentences. No: Respiratory Distress, Wheezes Cardiovascular: Regular rate, Normal S1, Normal S2, Murmur (unchanged) Abdomen: Normal bowel sounds, Soft, No tenderness Extremities: No clubbing, No cyanosis, Other (legs are wrapped. Wounds are healing) Skin: Normal, [place], Warm, Dry Neurological: Normal speech Assessment/Plan - Assessment/Plan (1) Morbid obesity Status: Acute Current Visit: Yes Assessment: Worsened Plan: Encouraged dietary modification Consider evaluation by bariatric surgery (2) CHF (congestive heart failure) Status: Acute Current Visit: No Qualifiers: Congestive heart failure type: systolic Congestive heart failure chronicity : chronic Qualified Code(s): I50.22 - Chronic systolic (congestive) heart failure Assessment: Chronic (3) Cellulitis of leg without foot Status: Acute Current Visit: No Assessment: Continue current antibiotic therapy (4) Dyspnea Status: Acute Current Visit: No Qualifiers: Dyspnea type: shortness of breath Qualified Code(s): R06.02 - Shortness of breath Assessment: Multifactorial
[2017-01-25] MEDS: POLYETHYLENE GLYCOL 3350 17 GM POWD.PACK PO SCH (11:06)
[2017-01-25] MEDS: ENOXAPARIN SODIUM 30 MG/0.3 ML DISP.SYRIN SQ SCH (13:29)
[2017-01-25] MEDS: CEFUROXIME AXETIL 250 MG TABLET PO SCH ×2 (13:29→21:05)
[2017-01-25] MEDS: QUEtiapine FUMARATE 25 MG TABLET PO SCH (21:04)
[2017-01-26] MEDS: HYDROcodone /APAP 5/325 1 EACH TABLET PO PRN ×2 (05:14→13:43)
[2017-01-26] MEDS: IPRATROPIUM/ALBUTEROL SULFATE 3 ML AMPUL.NEB NEB SCH ×2 (08:40→12:54)
[2017-01-26 08:48] VITALS: BP 159/69
[2017-01-26] MEDS: GABAPENTIN 300 MG CAPSULE PO SCH (09:31)
[2017-01-26] MEDS: CEFUROXIME AXETIL 250 MG TABLET PO SCH (09:31)
[2017-01-26] MEDS: LISINOPRIL 5 MG TABLET PO SCH (09:31)
[2017-01-26] MEDS: FUROSEMIDE 40 MG TABLET PO SCH (09:31)
[2017-01-26] MEDS: VENLAFAXINE HCL 37.5 MG CAP.ER.24H PO SCH (09:32)
[2017-01-26] MEDS: POTASSIUM CHLORIDE 20 MEQ TABLET.ER PO SCH (09:32)
[2017-01-26] MEDS: LATUDA 40 MG PO SCH (09:32)
[2017-01-26] MEDS: DOCUSATE SODIUM 100 MG CAPSULE PO SCH (09:32)
[2017-01-26] MEDS: METOPROLOL TARTRATE 25 MG TABLET PO SCH (09:32)
[2017-01-26] MEDS: POLYETHYLENE GLYCOL 3350 17 GM POWD.PACK PO SCH (09:32)
--- NOTE | 2017-04-26 11:07 | Discharge Summary ---
DATE OF ADMISSION: January 12, 2017 DATE OF DISCHARGE: January 26, 2017 DIAGNOSES ON THIS HOSPITALIZATION: 1. Cellulitis of bilateral lower extremities. 2. Morbid obesity. 3. Congestive heart failure. 4. Dyspnea. SUMMARIZATION OF HISTORY AND PHYSICAL: This is a 52-year-old female who was initially admitted to our facility on January 09, 2017, with a diagnosis of congestive heart failure and bilateral lower extremity cellulitis, hyperglycemia, noncompliance, and morbid obesity. She was initially admitted and Unna boots were placed. Because of a lack of response to outpatient Cipro, she was started on ceftriaxone. Vaseline gauze to legs were applied, as well as Unna boots. On January 12, 2017, she was transferred then for a skilled care stay. HOSPITAL COURSE ON THE SKILLED STAY: She actually slowly improved but she continued to eat 2 or more portions of every meal. She did actually continue to have some problems with weight gain but her legs did heal. Physical therapy worked with her and she was able to ambulate but only short distances. She was discharged to home then on January 26, 2017, with the following medications. MEDICATIONS ON DISCHARGE: 1. ProAir inhaler 2 puffs every 4 hours as needed for coughing and wheezing. 2. Colace 100 mg p.o. daily. 3. Lasix 80 mg p.o. daily. 4. Gabapentin 300 mg p.o. b.i.d. 5. Lisinopril 10 mg p.o. daily. 6. Metoprolol 25 mg p.o. b.i.d. 7. MiraLAX 17 grams p.o. daily. 8. Potassium chloride 20 mEq p.o. daily. 9. Seroquel 200 mg at bedtime. 10. Venlafaxine 150 mg p.o. daily. 11. Alton 5/325 mg 1 p.o. b.i.d. p.r.n. pain. CONDITION ON DISCHARGE: Discharged to home in improved condition. DISCHARGE INSTRUCTIONS: 1. Home health was consulted on discharge. 2. Follow her up in the office in 1 week. BETINA
== END 2017-01-26 14:50 | disposition home health service (06) | DRG 603 ==
LOC: SOUTH 09:40
PROVIDERS: ADMIT Family Medicine; ATTEND Family Medicine
DX: L03.116 Cellulitis of left lower limb (principal); L03.115 Cellulitis of right lower limb; I50.9 Heart failure, unspecified; E66.01 Morbid (severe) obesity due to excess calories; R06.02 Shortness of breath; R73.9 Hyperglycemia, unspecified
CPT/HCPCS: 94640; 94760; J0696; J1650; J1940; A9270; A9270-GY; S1016

== ENCOUNTER 2017-02-08 14:08 | Outpatient (CLI) | payer OTHER | END 2017-02-08 14:10 | LOC: LABRHC 14:08 | PROVIDERS: ATTEND Family Medicine | DX: E11.9 Type 2 diabetes mellitus without complications (principal) | CPT/HCPCS: 83036 ==

== ENCOUNTER 2017-03-06 15:00 | Emergency (ER) | payer OTHER ==
--- NOTE | 2017-03-06 15:36 | ED Physician Documentation ---
Dyspnea - HISTORIAN Historian: patient - HPI Stated Complaint: Shortness of Breath Chief Complaint: Dyspnea Additional Information: morbidly obese female sob prog past several days. recently in hosp DR SALAZAR for similar-pt reportedly [id number] ht 5ft 7in-pt considering wt control surgery. on 80mg lasix daily. denies other c/o except swelling legs- wrapped and swelling arms. does not elevate legs. no cigs for few yrs but lives w/cigarette smoker Duration: continues in ED, worse Initiating Event: denies: upper respiratory illness, out of meds Severity: moderate Exacerbated By: change in position, exertion, laying flat Associated Symptoms: other (legs weep and are wrapped-reportedfly arms weep somewhat.) - ROS CONST: recent illness, weakness, other (as above) EYES/ENT: none GI/: other (freq urination) NEURO/PSYCH: denies: headache - PAST HX Lung Disease: COPD Cardiac Disease: CHF, other (donna htn bipolar) PE Risk Factors: hypertension Surgeries/Procedures: hysterectomy, other (btl t/a) Allergies/Adverse Reactions: Allergies Allergy/AdvReac Type Severity Reaction Status Date / Time olmesartan medoxomil Allergy Severe Anaphylaxis Verified 07/02/16 14:40 [From Benicar] Penicillins Allergy Severe Anaphylaxis Verified 07/02/16 14:40 Sulfa (Sulfonamide Allergy Intermediate Hives Verified 07/02/16 14:40 Antibiotics) [Sulfa(Sulfonamide Antibiotics)] fluticasone propionate Allergy Mild Rash, mild Verified 07/02/16 14:40 [From Advair Diskus] salmeterol xinafoate Allergy Mild Rash, mild Verified 07/02/16 14:40 [From Advair Diskus] Home Medications: Ambulatory Orders Medication Instructions Recorded Venlafaxine HCl [Effexor Xr] 150 mg PO DAILY #30 av 02/03/13 Lisinopril [Prinivil] 10 mg PO DAILY 07/02/16 Albuterol Sulfate [Proair HFA] 01/09/17 Furosemide [Lasix] 40 mg PO DAILY 01/09/17 - SOCIAL HX Smoking History: non-smoker Alcohol Use: none Drug Use: none - FAMILY HX Family History: none - VITAL SIGNS Vital Signs: Vital Signs Temp Pulse Resp BP Pulse Ox 98 F 94 H 26 H 146/47 95 03/06/17 15:00 03/06/17 15:00 03/06/17 15:00 03/06/17 15:00 03/06/17 15:00 - REVIEWED ASSESSMENTS Nursing Assessment Reviewed: Yes Vitals Reviewed: Yes ED Results Lab/Radiology - Radiology Radiology Impressions: cxr = cardiomegally - Orders Orders: ED Orders Category Date Time Status Arterial Blood Gas 1T Care 03/06/17 15:21 Ordered Continuous EKG monitoring Q30M Care 03/06/17 15:21 Ordered Continuous Pulse Oximetry Q30M Care 03/06/17 15:21 Ordered CHEST P.A.&LAT 2 VIEWS [RAD] Stat Exams 03/06/17 Ordered CBC/PLATELET/DIFF Routine Lab 03/06/17 15:21 Ordered CMP Routine Lab 03/06/17 15:21 Ordered CREATINE KINASE Routine Lab 03/06/17 15:21 Ordered NT-proBNP Stat Lab 03/06/17 Ordered TROPONIN I (cTnI) Stat Lab 03/06/17 15:21 Ordered Oxygen Daily Oxygen 03/06/17 15:30 Ordered EKG WITH COMPARISON Stat Ther 03/06/17 15:21 Ordered Dyspnea Physical Exam - EXAM General Appearance: mild distress, moderate distress EENT: eye inspection normal, no nystagmus Respiratory: respiratory distress, wheezes, rales. No: accessory muscle use CVS: reg. rate & rhythm Abdomen: non-tender. No: tenderness, guarding Skin: color nml, other (legs wrapped-weeping pt quite obese). No: cyanosis, diaphoresis, pallor Extremities: normal range of motion, edema Neuro/Psych: oriented x3, motor nml, sensation nml, depressed mood/affect Discharge Clincal Impression: cardiomegally/chf, morbid obesity Referrals: Morro Salazar MD [Primary Care Provider] - 2 Days Home Medications: Ambulatory Orders Venlafaxine HCl [Effexor Xr] 150 mg PO DAILY #30 av 02/03/13 Lisinopril [Prinivil] 10 mg PO DAILY 07/02/16 Albuterol Sulfate [Proair HFA] 01/09/17 Furosemide [Lasix] 40 mg PO DAILY 01/09/17 Comments: will [facility] DR BLANCHARD Condition: Fair Disposition: 02 XFER SHT-TRM HOSP Decision to Admit: NO Decision Time: 16:56
[2017-03-06 15:43] LABS: eGFR (African) > 60; eGFR (Non-African) > 60
[2017-03-06 15:56] LABS: BASOPHILS % 0.5 (0.0-1.5); EOSINOPHILS % 5.6 % (0.0-6.8); MEAN CORPUSCULAR HEMOGLOBIN 28.5 pg (28.0-34.0); MEAN CORPUSCULAR VOLUME 89.7 fl (80.0-100.0); MONOCYTES % 6.7 % (0.0-11.0); NEUTROPHILS # 4.2 # k/uL (1.4-7.7)
[2017-03-06 17:21] VITALS: BP 130/68
--- NOTE | 2017-03-06 18:09 | Diagnostic Imaging Report ---
QUANG LEVINE [facility] [address] [facility].[address] [address] Report Submission Date: Mar 06, 2017 4:01:51 PM CDT Patient Study Name: ZEINAB BOWEN Date: Mar 06, 2017 3:36:08 PM CDT Modality Type: CR Gender: F Description: CHEST : 63 Institution: [facility] Physician: QUANG LEVINE Examination: PA and lateral chest. History: Evaluate lung cullen. Findings: PA lateral chest demonstrate a normal cardiac and mediastinal silhouette. Haziness at the left lung base: though breast attenuation limit sensitivity. Remaining lung cullen are clear. Osseous structures are appropriate for age. Impression: Possible early infiltrate left lower lung. No effusion. Electronically signed on Mar 06, 2017 4:01:51 PM CDT by: Lucas MOFFETT
== END 2017-03-06 17:10 | disposition short-term general hospital (02) ==
LOC: ED 15:00
DX: I51.7 Cardiomegaly (principal); I50.9 Heart failure, unspecified; E66.01 Morbid (severe) obesity due to excess calories
CPT/HCPCS: 71020; 80053; 82550; 83880; 84484; 85025; 99284; S1016

== ENCOUNTER 2017-05-22 17:44 | Emergency (ER) | payer OTHER ==
--- NOTE | 2017-05-22 18:15 | ED Physician Documentation ---
General Adult - HISTORIAN Historian: patient - HPI Stated Complaint: sob Chief Complaint: General Adult Onset: hours Timing: still present Severity: moderate Further Comments: yes (Pt is a 52 yo female.) - PAST HX Allergies/Adverse Reactions: Allergies Allergy/AdvReac Type Severity Reaction Status Date / Time olmesartan medoxomil Allergy Severe Anaphylaxis Verified 07/02/16 14:40 [From Benicar] Penicillins Allergy Severe Anaphylaxis Verified 07/02/16 14:40 Sulfa (Sulfonamide Allergy Intermediate Hives Verified 07/02/16 14:40 Antibiotics) [Sulfa(Sulfonamide Antibiotics)] fluticasone propionate Allergy Mild Rash, mild Verified 07/02/16 14:40 [From Advair Diskus] salmeterol xinafoate Allergy Mild Rash, mild Verified 07/02/16 14:40 [From Advair Diskus] Home Medications: Ambulatory Orders Medication Instructions Recorded Venlafaxine HCl [Effexor Xr] 150 mg PO DAILY #30 av 02/03/13 Lisinopril [Prinivil] 10 mg PO DAILY 07/02/16 Aspirin [Aspir 81] 81 mg PO DAILY u2 04/24/17 Furosemide 80 mg PO BID u2 04/24/17 Ipratropium/Albuterol Sulfate 3 ml IH QID PRN 04/24/17 [Iprat-Albut 0.5-3(2.5) Mg/3 Ml] - VITAL SIGNS Vital Signs: Vital Signs Temp Pulse Resp BP Pulse Ox 130/68 03/06/17 17:10 Discharge Referrals: Morro Gonzalez MD [Primary Care Provider] - 2 Days
[2017-05-22 18:27] LABS: BASOPHILS % 0.4 (0.0-1.5); EOSINOPHILS % 3.6 % (0.0-6.8); MEAN CORPUSCULAR VOLUME 87.3 fl (80.0-100.0); MONOCYTES % 4.9 % (0.0-11.0); NEUTROPHILS # 3.6 # k/uL (1.4-7.7)
[2017-05-22 18:44] LABS: eGFR (African) > 60; eGFR (Non-African) > 60
[2017-05-22] MEDS: LORazepam 1 MG TABLET PO ONE (20:10)
--- NOTE | 2017-05-22 20:38 | ED Physician Documentation ---
General Adult - HISTORIAN Historian: patient - HPI Stated Complaint: SOA Chief Complaint: Dyspnea Additional Information: recieved this pt from DR MORALES w/ dx CHF dyspnea-on mutliple meds but pt did not bring them or list w/her. meds list from old record. at receipt of her care adi was putting out large volumes urine frequently and feels better. her lungs are fairly clear and cxr and lab are as attached and reviewed her bnp is slightly elevated . she has bs of 185 but denies diabetes. she states she feels good to go home and will see DR SALAZAR wednesdayor will ret to ED. she will bring her meds if she returns. she also will take them w/her when she sees DR Garnica. Timing: better Severity: moderate - ROS CONST: other (SOB ONLY BUT SAYS MUCH BETTER W/ REPORTED MASSIVE URINE OUT PUT. PT DECLARES SHE HAS NOT MISSED ANY DOSAGES) CVS/RESP: shortness of breath GI/: none. denies: problems urinating, vomiting, nausea MS/SKIN/LYMPH: none NEURO/PSYCH: difficulty walking (due apparently to morbid obesity). denies: headache, fainting, dizziness - PAST HX Past History: asthma, COPD, CHF, renal disease Other History: diabetes Type 2 (bipolar veinous stasis SOHA anxiety ) Allergies/Adverse Reactions: Allergies Allergy/AdvReac Type Severity Reaction Status Date / Time olmesartan medoxomil Allergy Severe Anaphylaxis Verified 05/22/17 18:17 [From Benicar] Penicillins Allergy Severe Anaphylaxis Verified 05/22/17 18:17 Sulfa (Sulfonamide Allergy Intermediate Hives Verified 05/22/17 18:17 Antibiotics) [Sulfa(Sulfonamide Antibiotics)] fluticasone propionate Allergy Mild Rash, mild Verified 05/22/17 18:17 [From Advair Diskus] salmeterol xinafoate Allergy Mild Rash, mild Verified 05/22/17 18:17 [From Advair Diskus] Home Medications: Ambulatory Orders Medication Instructions Recorded Venlafaxine HCl [Effexor Xr] 150 mg PO DAILY #30 av 02/03/13 Lisinopril [Prinivil] 10 mg PO DAILY 07/02/16 Aspirin [Aspir 81] 81 mg PO DAILY u2 04/24/17 Furosemide 80 mg PO BID u2 04/24/17 Ipratropium/Albuterol Sulfate 3 ml IH QID 04/24/17 [Iprat-Albut 0.5-3(2.5) Mg/3 Ml] - SOCIAL HX Smoking History: non-smoker Alcohol Use: none Drug Use: none - FAMILY HX Family History: No - VITAL SIGNS Vital Signs: Vital Signs Temp Pulse Resp BP Pulse Ox 98.6 F 97 H 28 H 96/63 95 05/22/17 18:19 05/22/17 18:19 05/22/17 18:19 05/22/17 18:19 05/22/17 20:00 - REVIEWED ASSESSMENTS Nursing Assessment Reviewed: Yes Vitals Reviewed: Yes ED Results Lab/Radiology - Lab Results Lab Results: Lab Results 05/22/17 05/22/17 05/22/17 18:50 18:24 18:23 WBC 5.50 K/ul K/ul (4.00-12.00) RBC 4.38 M/ul M/ul (3.90-5.20) Hgb 11.8 g/dL L g/dL (12.0-16.0) Hct 38.2 % % (34.5-46.5) MCV 87.3 fl fl (80.0-100.0) MCH 27.0 pg L pg (28.0-34.0) MCHC 30.9 g/dL g/dL (30.0-36.0) RDW 15.4 % H % (11.3-14.3) Plt Count 279 K/mm3 K/mm3 (130-400) Neut % (Auto) 65.6 % % (39.0-79.0) Lymph % (Auto) 23.7 % % (16.0-50.0) Heard % (Auto) 4.9 % % (0.0-11.0) Eos % (Auto) 3.6 % % (0.0-6.8) Baso % (Auto) 0.4 (0.0-1.5) Neut # (Auto) 3.6 # k/uL # k/uL (1.4-7.7) Lymph # (Auto) 1.3 # k/uL # k/uL (0.6-4.0) Heard # (Auto) 0.3 # k/uL # k/uL (0.0-0.9) Eos # (Auto) 0.2 # k/uL # k/uL (0.0-0.6) Baso # (Auto) 0.0 # k/uL # k/uL (0.0-0.5) Reactive Lymphs % 1.7 % % (0.0-5.0) Reactive Lymphs # 0.1 # k/uL # k/uL (0.0-0.8) Sodium Potassium Chloride Carbon Dioxide BUN Creatinine Estimated Creat Clear Est GFR ( Amer) Est GFR (Non-Af Amer) Glucose Calcium Total Bilirubin AST ALT Alkaline Phosphatase Creatine Kinase CK-MB (CK-2) 2.5 ng/mL ng/mL (0.0-5.6) Troponin I < 0.03 ng/mL L ng/mL (0.03-0.06) NT-Pro-B Natriuret Pep 185.8 pg/mL H pg/mL (15.0-125.0) Total Protein Albumin 05/22/17 18:23 WBC RBC Hgb Hct MCV MCH MCHC RDW Plt Count Neut % (Auto) Lymph % (Auto) Heard % (Auto) Eos % (Auto) Baso % (Auto) Neut # (Auto) Lymph # (Auto) Heard # (Auto) Eos # (Auto) Baso # (Auto) Reactive Lymphs % Reactive Lymphs # Sodium 138 mmol/L mmol/L (137-145) Potassium 3.6 mmol/L mmol/L (3.5-5.1) Chloride 100 mmol/L mmol/L (98-107) Carbon Dioxide 30 mmol/L mmol/L (22-30) BUN 7 mg/dL mg/dL (7-17) Creatinine 0.70 mg/dL mg/dL (0.52-1.04) Estimated Creat Clear 305 Est GFR ( Amer) > 60 (60 - ) Est GFR (Non-Af Amer) > 60 (60 - ) Glucose 182 mg/dL H mg/dL (74-106) Calcium 9.0 mg/dL mg/dL (8.4-10.2) Total Bilirubin 0.1 mg/dL L mg/dL (0.2-1.3) AST 19 U/L U/L (15-46) ALT 23 U/L U/L (13-69) Alkaline Phosphatase 87 U/L U/L (38-126) Creatine Kinase 56 U/L U/L (30-135) CK-MB (CK-2) Troponin I NT-Pro-B Natriuret Pep Total Protein 7.6 g/dL g/dL (6.3-8.2) Albumin 3.6 g/dL g/dL (3.5-5.0) - Radiology Radiology Impressions: cxr no apparent CHF - Orders Orders: ED Orders Category Date Time Status Continuous EKG monitoring Q30M Care 05/22/17 18:19 Active Continuous Pulse Oximetry Q30M Care 05/22/17 18:19 Active CHEST 1 VIEW [RAD] Stat Exams 05/22/17 18:19 Taken BNP [NT-proBNP] Stat Lab 05/22/17 18:50 Completed CBC/PLATELET/DIFF Routine Lab 05/22/17 18:24 Completed CKMB Stat Lab 05/22/17 18:23 Completed CMP Routine Lab 05/22/17 18:23 Completed CREATINE KINASE Routine Lab 05/22/17 18:23 Completed TROPONIN I (cTnI) Stat Lab 05/22/17 Ordered TROPONIN I (cTnI) Stat Lab 05/22/17 18:23 Completed LORazepam [Ativan] Med 05/22/17 20:06 Discontinued 0.5 mg PO NOW ONE Oxygen Daily Oxygen 05/22/17 18:30 Ordered EKG WITH COMPARISON Stat Ther 05/22/17 18:19 Ordered General Adult Physical Exam - PHYSICAL EXAM GENERAL APPEARANCE: moderate distress (but sig improved now) NECK: other (obese) CVS: reg rate & rhythm, heart sounds normal. No: tachycardia, bradycardia, frequent extrasystoles ABDOMEN: soft, non-tender SKIN: warm/dry, normal color. No: cyanosis, diaphoresis EXTREMITIES: edema (dependent which she apparently always has) NEURO: oriented X3, motor nml, sensation nml, mood/affect nml Discharge Clincal Impression: CHF IMPROVED W/ UA OUTPUT, DIABETES, MORBID OBESITY, ANXIETY Referrals: Morro Salazar MD [Primary Care Provider] - 2 Days Comments: WE DISCUSSED AT LENGTH THAT SHE MUST LOOSE WT OR GIVE UP HER HEALTH. SHE APPEARED TO UNDERSTAND Condition: Fair Disposition: 01 HOME, SELF-CARE Decision to Admit: NO Decision Time: 20:47
[2017-05-22 20:42] VITALS: BP 120/95
--- NOTE | 2017-05-23 03:03 | Diagnostic Imaging Report ---
ERIN MORALES [facility] [address] [facility].[address] [address] Report Submission Date: May 22, 2017 7:08:43 PM CDT Patient Study Name: ZEINAB BOWEN Date: May 22, 2017 6:47:39 PM CDT Modality Type: CR Gender: F Description: CHEST : 63 Institution: [facility] Physician: ERIN MORALES Chest, AP portable, 2 images History: Shortness of breath Findings: Examination is limited by patient size and portable technique. There is no infiltrate, effusion or pneumothorax. Heart size and pulmonary vascularity are normal. Since 06 March 2017, allowing for differences in technique, little change has occurred. Impression: No active disease. Electronically signed on May 22, 2017 7:08:43 PM CDT by: Don MOFFETT
== END 2017-05-22 20:25 | disposition home or self-care (01) ==
LOC: ED 17:44
DX: I50.9 Heart failure, unspecified (principal); E11.9 Type 2 diabetes mellitus without complications; F41.9 Anxiety disorder, unspecified; E66.01 Morbid (severe) obesity due to excess calories
CPT/HCPCS: 71010; 80053; 82550; 82553; 83880; 84484; 85025; 99283; S1016

== ENCOUNTER 2017-10-26 13:08 | Outpatient (CLI) | payer OTHER | END 2017-10-26 13:10 | LOC: LABRHC 13:08 | PROVIDERS: ATTEND Family Medicine | DX: R73.9 Hyperglycemia, unspecified (principal); E66.01 Morbid (severe) obesity due to excess calories; E88.81 Metabolic syndrome and other insulin resistance | CPT/HCPCS: 83036 ==

== ENCOUNTER 2017-11-12 17:07 | Outpatient (CLI) | payer OTHER ==
[2017-11-12 17:16] LABS: APPEARANCE,URINE Clear (CLEAR); COLOR,URINE Yellow (YELLOW); OCCULT BLOOD,URINE Trace-intact (NEGATIVE)
[2017-11-12 17:34] LABS: AMORPHOUS SEDIMENT,UR FEW (NEGATIVE)
== END 2017-11-12 17:15 ==
LOC: LABRHC 17:07
PROVIDERS: ATTEND Family Medicine
DX: R30.0 Dysuria (principal)
CPT/HCPCS: 81002

== ENCOUNTER 2018-02-08 12:20 | Outpatient (CLI) | payer OTHER ==
[2018-02-08 13:22] LABS: eGFR (African) > 60; eGFR (Non-African) > 60
== END 2018-02-08 12:23 ==
LOC: LAB 12:20
PROVIDERS: ATTEND Family Medicine
DX: E11.9 Type 2 diabetes mellitus without complications (principal); Z79.899 Other long term (current) drug therapy
CPT/HCPCS: 36415; 80053; 83036

== ENCOUNTER 2018-03-01 13:00 | Inpatient (IN) | payer OTHER ==
--- NOTE | 2018-03-01 13:21 | ED Physician Documentation ---
Lower Extremity Injury - HISTORIAN Historian: patient - HPI Chief Complaint: Lower Extremity Problem Additional Information: Patient has been having some increase pain to the heals and feet bilateral. Has developed some warmth and erythema to her feet bilateral. Believes that she has developed some cellulitis. Front/Back of Body, Lg ([place]): 1 - great toe to dorsum of foot to pretibial area 2 - left ankle, open wound to the mid pretibial area that is weeping. Onset: days ago Severity: moderate Associated Symptoms:: numbness distally, swelling Modifying Factors:: pain on movement - ROS CONST: no problems. denies: fever, chills CVS/RESP: shortness of breath (at baseline). denies: chest pain GI/: denies: problems urinating MS/SKIN/LYMPH: foot swelling, ankle swelling NEURO: anxiety. denies: headache, head injury - PAST HX Past History: other (asthma, bipolar disease, chronic venous stasis, CHF, HTN, genaralized OA, morbid obesity, sleep apnea, panic disorder) Immunizations: referred to PCP Allergies/Adverse Reactions: Allergies Allergy/AdvReac Type Severity Reaction Status Date / Time olmesartan medoxomil Allergy Severe Anaphylaxis Verified 03/01/18 13:20 [From Benicar] Penicillins Allergy Severe Anaphylaxis Verified 03/01/18 13:20 Sulfa (Sulfonamide Allergy Intermediate Hives Verified 03/01/18 13:20 Antibiotics) [Sulfa(Sulfonamide Antibiotics)] fluticasone propionate Allergy Mild Rash, mild Verified 03/01/18 13:20 [From Advair Diskus] salmeterol xinafoate Allergy Mild Rash, mild Verified 03/01/18 13:20 [From Advair Diskus] Home Medications: Ambulatory Orders Medication Instructions Recorded Venlafaxine HCl [Effexor Xr] 150 mg PO DAILY #30 av 02/03/13 Lisinopril [Prinivil] 10 mg PO DAILY 07/02/16 Aspirin [Aspir 81] 81 mg PO DAILY u2 04/24/17 Furosemide 80 mg PO BID u2 04/24/17 - SOCIAL HX Smoking History: non-smoker, quit greater than 1 year Alcohol Use: none Drug Use: none - FAMILY HX Family History: cardiac disease - VITAL SIGNS Vital Signs: Vital Signs Temp Pulse Resp BP Pulse Ox 97.3 F L 72 22 120/73 98 03/01/18 13:12 03/01/18 13:12 03/01/18 13:12 03/01/18 13:12 03/01/18 13:12 - REVIEWED ASSESSMENTS Nursing Assessment Reviewed: Yes Vitals Reviewed: Yes ED Results Lab/Radiology - Lab Results Lab Results: Lab Results 03/01/18 03/01/18 03/01/18 13:35 13:35 13:35 WBC 7.10 K/ul K/ul (4.00-12.00) RBC 4.37 M/ul M/ul (3.90-5.20) Hgb 12.4 g/dL g/dL (12.0-16.0) Hct 39.1 % % (34.5-46.5) MCV 89.5 fl fl (80.0-100.0) MCH 28.3 pg pg (28.0-34.0) MCHC 31.6 g/dL g/dL (30.0-36.0) RDW 14.3 % % (11.3-14.3) Plt Count 311 K/mm3 K/mm3 (130-400) Neut % (Auto) 75.1 % % (39.0-79.0) Lymph % (Auto) 15.4 % L % (16.0-50.0) [place] % (Auto) 5.1 % % (0.0-11.0) Eos % (Auto) 2.4 % % (0.0-6.8) Baso % (Auto) 0.2 (0.0-1.5) Neut # (Auto) 5.4 # k/uL # k/uL (1.4-7.7) Lymph # (Auto) 1.1 # k/uL # k/uL (0.6-4.0) [place] # (Auto) 0.4 # k/uL # k/uL (0.0-0.9) Eos # (Auto) 0.2 # k/uL # k/uL (0.0-0.6) Baso # (Auto) 0.0 # k/uL # k/uL (0.0-0.5) Reactive Lymphs % 1.8 % % (0.0-5.0) Reactive Lymphs # 0.1 # k/uL # k/uL (0.0-0.8) Sodium 139 mmol/L mmol/L (136-145) Potassium 3.8 mmol/L mmol/L (3.5-5.1) Chloride 99 mmol/L mmol/L (98-107) Carbon Dioxide 32 mmol/L H mmol/L (22-30) BUN 14 mg/dL mg/dL (7-17) Creatinine 0.70 mg/dL mg/dL (0.52-1.04) Estimated Creat Clear 285 Est GFR ( Amer) > 60 (60 - ) Est GFR (Non-Af Amer) > 60 (60 - ) Glucose 104 mg/dL mg/dL (74-106) Calcium 9.8 mg/dL mg/dL (8.4-10.2) Total Bilirubin < 0.1 mg/dL L mg/dL (0.2-1.3) AST 17 U/L U/L (15-46) ALT 26 U/L U/L (13-69) Alkaline Phosphatase 98 U/L U/L (38-126) NT-Pro-B Natriuret Pep 147.5 pg/mL H pg/mL (15.0-125.0) Total Protein 8.5 g/dL H g/dL (6.3-8.2) Albumin 4.1 g/dL g/dL (3.5-5.0) - Radiology Radiology Impressions: Portable chest History: Dyspnea Portable chest dated March 01, 2018 is limited partly due to the patient's body habitus and partly due to underpenetration. The cardiomediastinal silhouette is within normal limits. Pulmonary vascularity is normal. No confluent infiltrate or pleural effusion is seen. Impression: Limited radiograph. No active disease. - Orders Orders: ED Orders Category Date Time Status CHEST 1VIEW [RAD] Routine Exams 03/01/18 Taken BLOOD CULTURE Routine Lab 03/01/18 13:35 Received CBC/PLATELET/DIFF Routine Lab 03/01/18 13:35 Completed CMP Routine Lab 03/01/18 13:35 Completed NT-proBNP Routine Lab 03/01/18 13:35 Completed WOUND CULTURE Routine Lab 03/01/18 13:23 Ordered Ketorolac Tromethamine [Toradol] Med 03/01/18 13:26 Discontinued 30 mg .ROUTE .STK-MED ONE Ketorolac Tromethamine [Toradol] Med 03/01/18 13:38 Discontinued 30 mg IVP NOW ONE cefTRIAXone SODIUM [Rocephin] Med 03/01/18 13:59 Discontinued 1 gm .ROUTE .STK-MED ONE cefTRIAXone SODIUM [Rocephin] 1 gm Med 03/01/18 13:57 Discontinued 0.9 % Sodium Chloride [Sodium Chloride] 50 ml IV NOW Lower Extremities Injury Phy - Physical Exam General Appearance: alert, moderate distress Hips: bilateral hip: non-tender, normal inspection, normal range of motion, no evidence of injury Knees: bilateral: pain, soft tissue tenderness (heals and feet), swelling ( weeping from left wound), other (erythema and warmth), N/A: bone tenderness ( none), deformity (none), ecchymosis (none) Ankle: bilateral: swelling Foot: right foot: other (erythema), bilateral foot: soft tissue tenderness, swelling Gait: limited by pain Neuro/Vascular/Tendon: no vascular compromise, motor nml. No: sensation nml ( decreased to light touch) Head/ENT: nml inspection, pharynx nml Neck/Back: nml inspection, non-tender, tenderness Resp/CVS: chest non-tender, breath sounds nml, heart sounds nml (distant), no resp. distress, lungs clear, reg. rate & rhythm, tenderness, ecchymosis Abdomen: non-tender, tenderness. No: guarding Discharge Clincal Impression: Bilateral cellulitis of lower leg Referrals: Morro Gonzalez MD [Primary Care Provider] - 2 Days Condition: Stable Disposition: [facility] Decision to Admit: [id number] Date of Decison to Admit: 03/01/18 Decision Time: 14:42
[2018-03-01] MEDS ORDERED: KETOROLAC TROMETHAMINE 30 MG/1ML VIAL ONE (13:26)
[2018-03-01] MEDS ORDERED: KETOROLAC TROMETHAMINE 30 MG/1ML VIAL IVP ONE (13:38)
[2018-03-01 13:44] LABS: BASOPHILS % 0.2 (0.0-1.5); EOSINOPHILS % 2.4 % (0.0-6.8); MEAN CORPUSCULAR HEMOGLOBIN 28.3 pg (28.0-34.0); MEAN CORPUSCULAR VOLUME 89.5 fl (80.0-100.0); MONOCYTES % 5.1 % (0.0-11.0); NEUTROPHILS # 5.4 # k/uL (1.4-7.7)
[2018-03-01] MEDS ORDERED: cefTRIAXone SODIUM 1 GM in 0.9 % SODIUM CHLORIDE 50 ML IV ONE (13:57)
[2018-03-01 13:58] LABS: eGFR (African) > 60; eGFR (Non-African) > 60
[2018-03-01] MEDS ORDERED: cefTRIAXone SODIUM 1 GM VIAL ONE (13:59)
[2018-03-01] MEDS: FUROSEMIDE 40 MG/4 ML VIAL IVP SCH (15:15)
[2018-03-01] MEDS ORDERED: HYDROcodone /APAP 5/325 1 EACH TABLET PO PRN (15:32)
[2018-03-01] MEDS ORDERED: HYDROcodone /APAP 5/325 1 EACH TABLET PO SCH (16:00)
[2018-03-01] MEDS ORDERED: FUROSEMIDE 40 MG/4 ML VIAL IVP SCH (16:00)
[2018-03-01] MEDS ORDERED: cefTRIAXone SODIUM 1 GM in 0.9 % SODIUM CHLORIDE 50 ML IV SCH (16:00)
[2018-03-01] MEDS: ENOXAPARIN SODIUM 40 MG/0.4 ML DISP.SYRIN SQ SCH (16:21)
--- NOTE | 2018-03-01 16:38 | Diagnostic Imaging Report ---
FLACA ANTONIO [facility] [address] [facility].[address] [address] Report Submission Date: Mar 01, 2018 2:05:04 PM CDT Patient Study Name: ZEINAB BOWEN Date: Mar 01, 2018 1:44:00 PM CDT Modality Type: DX Gender: F Description: CHEST : 63 Institution: [facility] Physician: FLACA ANTONIO Portable chest History: Dyspnea Portable chest dated March 01, 2018 is limited partly due to the patient's body habitus and partly due to underpenetration. The cardiomediastinal silhouette is within normal limits. Pulmonary vascularity is normal. No confluent infiltrate or pleural effusion is seen. Impression: Limited radiograph. No active disease. Electronically signed on Mar 01, 2018 2:05:04 PM CDT by: Bee MOFFETT
[2018-03-01] MEDS: GABAPENTIN 300 MG CAPSULE PO SCH (17:28)
[2018-03-01 18:34] VITALS: BMI 60.4
--- NOTE | 2018-03-01 19:14 | History and Physical Report ---
History of Present Illnes - History of Present Illness Reason for Visit: Cellulitis of both legs History of Present Illness: Juanis is seen today initially in the office due to drainage of both legs, increased leg pain and weakness. This has been present for the past week, but has been getting progressively worse. She had initially gotten a little better with her last hospital stay, however they have again worsened in the past few days. She does not think that she has a fever, but is very nauseated. - Past Medical History Cardiac: CHF, HTN Pulmonary: Asthma [employer]: denies: Other Gastrointestinal: denies: Other Heme/Onc: denies: Other Hepatobiliary: denies: Other Psych: Anxiety, Bipolar, Depression, Panic Musculoskeletal: Osteoarthritis Rheumatologic: denies: Other Infectious Disease: denies: Other Endocrine: Diabetes Dermatology: Other (infection in lower legs) - Past Surgical History Past Surgical History: Hysterectomy (total), Tubal Ligation, Other ( Tonsillectomy) - Past Social History Smoke: Quit (10 years ago but lives with a 1-2ppd smoker who smokes in the house ) Alcohol: None Drugs: None Lives: With Family - Health Maintenance Health Maintenance: Pneumococcal Vaccine, Mammogram (last year), Colonoscopy ( several year). denies: Influenza Vaccine Influenza Vaccine: Current for this Influenza Season Pneumonia Vaccine: Yes Resuscitation Status: Resusciation Status Resuscitation Status Full Code - Unable to Obtain History Unable to Obtain: No Review of Systems - Review of Systems Constitutional: Sweats, Weakness, Malaise. negative: Fever, Chills Eyes: pain (BLE). negative: vision change ENT: negative: Ear Pain, Ear Discharge Respiratory: Cough, Dry, Shortness of Breath. negative: Hemoptysis Cardiovascular: negative: Chest Pain Gastrointestinal: Nausea. negative: Vomiting, Abdominal Pain, Diarrhea Genitourinary: negative: Dysuria Musculoskeletal: Leg Pain Skin: Other (spreading cellulitis of both legs.) Neurological: Weakness - Medications/Allergies Allergies/Adverse Reactions: Allergies Allergy/AdvReac Type Severity Reaction Status Date / Time olmesartan medoxomil Allergy Severe Anaphylaxis Verified 03/01/18 13:20 [From Benicar] Penicillins Allergy Severe Anaphylaxis Verified 03/01/18 13:20 Sulfa (Sulfonamide Allergy Intermediate Hives Verified 03/01/18 13:20 Antibiotics) [Sulfa(Sulfonamide Antibiotics)] fluticasone propionate Allergy Mild Rash, mild Verified 03/01/18 13:20 [From Advair Diskus] salmeterol xinafoate Allergy Mild Rash, mild Verified 03/01/18 13:20 [From Advair Diskus] Current Inpatient Medications: Current Inpatient Medications Albuterol/Ipratropium (Duoneb) 3 ml NEB Q6 [facility] Aspirin (Ecotrin) 81 mg PO DAILY [facility] Atenolol (Tenormin) 25 mg PO DAILY [facility] Celecoxib (Celebrex) 200 mg PO DAILY [facility] Docusate Sodium (Colace) 100 mg PO DAILY [facility] Enoxaparin Sodium (Lovenox) 40 mg SQ QD [facility] Stop: 03/15/18 15:59 Last Admin: 03/01/18 16:21 Dose: 40 mg Furosemide (Lasix) 40 mg IVP [facility] Gabapentin (Neurontin) 300 mg PO TID [facility] Last Admin: 03/01/18 17:28 Dose: 300 mg Hydroxyzine HCl (Atarax) 25 mg PO BID PRN PRN Reason: Anxiety Ceftriaxone Sodium 1 gm/ (Sodium Chloride) 50 mls @ 100 mls/hr IV Q24H [facility] Lisinopril (Prinivil) 10 mg PO D [facility] Loratadine (Claritin) 10 mg PO DAILY [facility] Metolazone (Zaroxolyn) 10 mg PO DAILY [facility] Metoprolol Tartrate (Lopressor) 25 mg PO BID [facility] Miscellaneous (Patient Own Med) 1 each PO D [facility] Quetiapine Fumarate (Seroquel) 200 mg PO HS [facility] Spironolactone (Aldactone) 25 mg PO BID [facility] Exam - Exam Vital Signs: Vital Signs (72 hours) 03/01/18 03/01/18 15:00 18:00 Temperature 98.2 F 97.5 F L Pulse Rate [ 103 H 103 H Left] Respiratory 18 18 Rate Blood Pressure 147/68 147/64 [Left Arm] O2 Sat by Pulse 94 94 Oximetry General: Alert, Oriented to Person, Oriented to Place, Oriented to Time, Morbidly Obese (super) HEENT: Atraumatic, PERRLA, EOMI, Poor Dentition Neck: No: Stridor, Rigidity Lungs: Decreased Air Movement Cardiovascular: Regular rate Murmur: No: Systolic Murmur Abdomen: Normal bowel sounds, Soft Genitourinary: No: Other Male Genitourinary: No: Other Female Genitourinary: No: Other Integumentary: Other (cellulitis of both legs from about mid carrera down is noted. There is matted dog hair and debris on the left leg.) Extremities: Other (Edema is about 3+) Neurological: Normal speech, Strength Equal Bilat, Generalized Weakness Psych/Mental Status: Mental status NL - Laboratory Results Laboratory Results: CXR and CBC/CMP are unremarkable Assessment/Plan - Assessment/Plan (1) Bilateral cellulitis of lower leg Status: Acute Current Visit: Yes Assessment: Blood and wound cultures are pending Start Rocephin empirically (2) CHF (congestive heart failure) Status: Acute Current Visit: No Qualifiers: Qualified Code(s): I50.22 - Chronic systolic (congestive) heart failure Assessment: Chronic, fairly well compensated currently based on exam and BNP. (3) Hyperglycemia Status: Acute Current Visit: No Assessment: Start ACHS accuchecks (4) Morbid obesity Status: Acute Current Visit: No Assessment: Chronic with concommitant food addiction (5) Obstructive sleep apnea Status: Acute Current Visit: No Assessment: May use CPAP brought from home VTE Assessment - RISK FACTOR SCORE VTE RISK FACTOR SCORES: AGE 40-60 YEARS (Start Lovenox for DVT prophylaxis), ACUTE INFECTION OTHER THEN SEPSIS
[2018-03-01] MEDS: IPRATROPIUM/ALBUTEROL SULFATE 3 ML AMPUL.NEB NEB SCH (19:27)
[2018-03-01] MEDS: SPIRONOLACTONE 25 MG TABLET PO SCH (20:32)
[2018-03-01] MEDS: QUEtiapine FUMARATE 25 MG TABLET PO SCH (20:32)
[2018-03-01] MEDS: HYDROcodone /APAP 5/325 1 EACH TABLET PO PRN (20:32)
[2018-03-01] MEDS: METOPROLOL TARTRATE 25 MG TABLET PO SCH (20:32)
[2018-03-01] MEDS: HYDROXYZINE HCL 25 MG TABLET PO PRN (20:40)
[2018-03-02] MEDS: HYDROcodone /APAP 5/325 1 EACH TABLET PO PRN ×6 (01:21→23:10)
[2018-03-02] MEDS: IPRATROPIUM/ALBUTEROL SULFATE 3 ML AMPUL.NEB NEB SCH ×4 (05:27→17:54)
[2018-03-02] MEDS: FUROSEMIDE 40 MG/4 ML VIAL IVP SCH ×2 (05:45→13:41)
[2018-03-02 06:22] LABS: BASOPHILS % 0.6 (0.0-1.5); EOSINOPHILS % 4.6 % (0.0-6.8); MEAN CORPUSCULAR HEMOGLOBIN 27.4 pg (28.0-34.0); MEAN CORPUSCULAR VOLUME 87.1 fl (80.0-100.0); MONOCYTES % 7.4 % (0.0-11.0); NEUTROPHILS # 3.8 # k/uL (1.4-7.7)
[2018-03-02] MEDS: METOLAZONE 2.5 MG TABLET PO SCH (08:37)
[2018-03-02] MEDS: ATENOLOL 25 MG TABLET PO SCH (08:37)
[2018-03-02] MEDS: CELECOXIB 100 MG CAPSULE PO SCH (08:37)
[2018-03-02] MEDS: LORATADINE 10 MG TABLET PO SCH (08:38)
[2018-03-02] MEDS: SPIRONOLACTONE 25 MG TABLET PO SCH ×2 (08:38→21:08)
[2018-03-02] MEDS: GABAPENTIN 300 MG CAPSULE PO SCH ×3 (08:38→17:48)
[2018-03-02] MEDS: ASPIRIN EC 81 MG TABLET.DR PO SCH (08:39)
[2018-03-02] MEDS: DOCUSATE SODIUM 100 MG CAPSULE PO SCH (08:39)
[2018-03-02] MEDS: METOPROLOL TARTRATE 25 MG TABLET PO SCH ×2 (08:39→21:08)
[2018-03-02] MEDS: LISINOPRIL 5 MG TABLET PO SCH (08:40)
[2018-03-02] MEDS ORDERED: ATENOLOL 25 MG TABLET PO SCH (09:00)
[2018-03-02] MEDS ORDERED: PATIENT OWN MED 1 EACH EACH PO SCH (09:00)
--- NOTE | 2018-03-02 09:24 | Inpatient Progress Note ---
Subjective - Required Recertification Statement I anticipate X number of days because-include discharge plan: 3 - Review of Systems Events since last encounter: Juanis states her legs are still throbbing (L>R) and her heels are bothering her more. She states she did not sleep well due to the pain. She states the pain medication is helping. Nursing states she continues to have a insatiable appetite and will request several trays of food for each meal. Patient claims she is not eating much at all. She states she is feeling well aside from her legs bothering. She has several sites on both arms where she has been scratching and picking her skin to the point that they have obviously been bleeding. When questioned about these areas she states she has very itchy skin and typically takes benadryl several times a day. She also takes hydroxizine daily. She denies any chest pain, shortness of breath, fever, chills, nausea, vomiting, or other concerns at time of interview. General: Appetite (good- per nursing patient requests several trays of food per meal). Denies: Chills HEENT: Denies: Head Aches, Eye Pain, Sinus Congestion, Post Nasal Drip, Sore Throat Cardiovascular: Edema (bilateral lower extremity L>R). Denies: Chest Pain, Light Headedness Gastrointestinal: Denies: Nausea, Vomiting, Abdominal Pain, Diarrhea, Constipation (hx of consitpation - on stool softner) Genitourinary: Denies: Dysuria, Frequency Musculoskeletal: Leg Pain (bilateral L>R). Denies: Neck Pain, Shoulder Pain, Arm Pain Neurological: Weakness (generalized - she notes trouble even standing on her legs.). Denies: Numbness, Change in Speech, Confusion Objective - Exam Vitals and I&O: Vital Signs Temp 96 F L 03/02/18 06:00 Pulse 86 03/02/18 06:31 Resp 24 03/02/18 06:31 BP 108/51 03/02/18 06:00 Pulse Ox 98 03/02/18 06:00 Intake & Output 03/01/18 03/01/18 03/02/18 11:59 23:59 11:59 Intake Total 360 360 Balance 360 360 Weight 164.654 kg Intake: Oral 360 360 Other: Voiding Method Bedside Commode Bedside Commode # Voids 3 General: Alert, Oriented to Person, Oriented to Place, Oriented to Time, Cooperative, No acute distress, Morbidly Obese HEENT: Hearing Grossly Normal. No: Atraumatic, EOMI, Mouth Mucous membr. moist/ [place] Neck: Supple Lungs: Clear to auscultation, Speaks full Sentences. No: Respiratory Distress Cardiovascular: Regular rate, No murmurs Abdomen: Normal bowel sounds, Soft, No tenderness Extremities: No clubbing, No cyanosis, Other (cellulitis and scattered oozing wounds of bilateral lower extremity with associated edema to knees) Skin: Warm, Dry, Cellulitis (bilateral lower extremity), Other (Multiple scabbed lesions of bilateral upper extremities of varying sizes (some quite large) without surrounding erythema resulting from skin picking and scratching by patient) Neurological: Generalized Weakness (patient struggles to support her own weight when standing - PT eval ordered - patient will likely require skilled therapy in order to safely return home. ) Psych/Mental Status: Mood NL - Results Results: Laboratory Results WBC 6.80 K/ul (4.00-12.00) 03/02/18 05:45 RBC 4.38 M/ul (3.90-5.20) 03/02/18 05:45 Hgb 12.0 g/dL (12.0-16.0) 03/02/18 05:45 Hct 38.1 % (34.5-46.5) 03/02/18 05:45 MCV 87.1 fl (80.0-100.0) 03/02/18 05:45 MCH 27.4 pg (28.0-34.0) L 03/02/18 05:45 MCHC 31.5 g/dL (30.0-36.0) 03/02/18 05:45 RDW 14.5 % (11.3-14.3) H 03/02/18 05:45 Plt Count 307 K/mm3 (130-400) 03/02/18 05:45 Neut % (Auto) 56.4 % (39.0-79.0) 03/02/18 05:45 Lymph % (Auto) 28.2 % (16.0-50.0) 03/02/18 05:45 [place] % (Auto) 7.4 % (0.0-11.0) 03/02/18 05:45 Eos % (Auto) 4.6 % (0.0-6.8) 03/02/18 05:45 Baso % (Auto) 0.6 (0.0-1.5) 03/02/18 05:45 Neut # (Auto) 3.8 # k/uL (1.4-7.7) 03/02/18 05:45 Lymph # (Auto) 1.9 # k/uL (0.6-4.0) 03/02/18 05:45 [place] # (Auto) 0.5 # k/uL (0.0-0.9) 03/02/18 05:45 Eos # (Auto) 0.3 # k/uL (0.0-0.6) 03/02/18 05:45 Baso # (Auto) 0.0 # k/uL (0.0-0.5) 03/02/18 05:45 Reactive Lymphs % 2.9 % (0.0-5.0) 03/02/18 05:45 Reactive Lymphs # 0.2 # k/uL (0.0-0.8) 03/02/18 05:45 Sodium 139 mmol/L (136-145) 03/01/18 13:35 Potassium 3.8 mmol/L (3.5-5.1) 03/01/18 13:35 Chloride 99 mmol/L (98-107) 03/01/18 13:35 Carbon Dioxide 32 mmol/L (22-30) H 03/01/18 13:35 BUN 14 mg/dL (7-17) 03/01/18 13:35 Creatinine 0.70 mg/dL (0.52-1.04) 03/01/18 13:35 Estimated Creat Clear 285 03/01/18 13:35 Est GFR ( Amer) > 60 (60-) 03/01/18 13:35 Est GFR (Non-Af Amer) > 60 (60-) 03/01/18 13:35 Glucose 104 mg/dL (74-106) 03/01/18 13:35 Calcium 9.8 mg/dL (8.4-10.2) 03/01/18 13:35 Total Bilirubin < 0.1 mg/dL (0.2-1.3) L 03/01/18 13:35 AST 17 U/L (15-46) 03/01/18 13:35 ALT 26 U/L (13-69) 03/01/18 13:35 Alkaline Phosphatase 98 U/L (38-126) 03/01/18 13:35 NT-Pro-B Natriuret Pep 147.5 pg/mL (15.0-125.0) H 03/01/18 13:35 Total Protein 8.5 g/dL (6.3-8.2) H 03/01/18 13:35 Albumin 4.1 g/dL (3.5-5.0) 03/01/18 13:35 Assessment/Plan - Assessment/Plan (1) Bilateral cellulitis of lower leg Status: Acute Current Visit: Yes Plan: Continue IV antibiotics and IV lasix. Patient to shift weight from side to side to relieve stress on heels to prevent further skin breakdown. (2) Morbid obesity Status: Acute Current Visit: No Plan: Spoke with patient about reducing daily caloric intake and the importance of well controlled blood sugars for healing. Patient voices understanding but insists that she does not really eat all that much. (3) Generalized weakness Status: Acute Current Visit: Yes Plan: PT eval ordered. Patient will likely require skilled therapy following acute stay to safely return home.
[2018-03-02] MEDS ORDERED: cefTRIAXone SODIUM 1 GM VIAL ONE (12:30)
[2018-03-02] MEDS: cefTRIAXone SODIUM 1 GM in 0.9 % SODIUM CHLORIDE 50 ML IV SCH (14:19)
[2018-03-02] MEDS: HYDROXYZINE HCL 25 MG TABLET PO PRN ×2 (14:22→23:10)
[2018-03-02] MEDS: ENOXAPARIN SODIUM 40 MG/0.4 ML DISP.SYRIN SQ SCH (16:29)
[2018-03-02] MEDS: Non-Formulary 1 EACH PO SCH (16:35)
[2018-03-02] MEDS: diphenhydrAMINE HCL 25 MG TABLET PO PRN ×2 (18:00→23:10)
[2018-03-02] MEDS: QUEtiapine FUMARATE 25 MG TABLET PO SCH (21:08)
[2018-03-03] MEDS: IPRATROPIUM/ALBUTEROL SULFATE 3 ML AMPUL.NEB NEB SCH ×4 (01:33→17:40)
[2018-03-03] MEDS: HYDROXYZINE HCL 25 MG TABLET PO PRN ×2 (03:30→20:51)
[2018-03-03] MEDS: HYDROcodone /APAP 5/325 1 EACH TABLET PO PRN ×5 (03:30→23:32)
[2018-03-03] MEDS: FUROSEMIDE 40 MG/4 ML VIAL IVP SCH ×2 (06:17→14:25)
[2018-03-03] MEDS: diphenhydrAMINE HCL 25 MG TABLET PO PRN ×4 (08:40→23:32)
[2018-03-03] MEDS: SPIRONOLACTONE 25 MG TABLET PO SCH ×2 (08:42→20:47)
[2018-03-03] MEDS: LORATADINE 10 MG TABLET PO SCH (08:43)
[2018-03-03] MEDS: DOCUSATE SODIUM 100 MG CAPSULE PO SCH (08:44)
[2018-03-03] MEDS: ASPIRIN EC 81 MG TABLET.DR PO SCH (08:44)
[2018-03-03] MEDS: VENLAFAXINE HCL 37.5 MG CAP.ER.24H PO SCH (08:44)
[2018-03-03] MEDS: METOPROLOL TARTRATE 25 MG TABLET PO SCH ×2 (08:48→20:47)
[2018-03-03] MEDS: GABAPENTIN 300 MG CAPSULE PO SCH ×3 (08:49→17:50)
[2018-03-03] MEDS: LISINOPRIL 5 MG TABLET PO SCH (08:49)
[2018-03-03] MEDS: METOLAZONE 2.5 MG TABLET PO SCH (08:56)
[2018-03-03] MEDS: ATENOLOL 25 MG TABLET PO SCH (08:56)
[2018-03-03] MEDS: CELECOXIB 100 MG CAPSULE PO SCH (08:56)
[2018-03-03] MEDS ORDERED: cefTRIAXone SODIUM 1 GM VIAL ONE (14:20)
[2018-03-03] MEDS: cefTRIAXone SODIUM 1 GM in 0.9 % SODIUM CHLORIDE 50 ML IV SCH (14:26)
[2018-03-03] MEDS: ENOXAPARIN SODIUM 40 MG/0.4 ML DISP.SYRIN SQ SCH (17:50)
[2018-03-03] MEDS: Non-Formulary 1 EACH PO SCH (17:50)
[2018-03-03] MEDS: QUEtiapine FUMARATE 25 MG TABLET PO SCH (20:47)
[2018-03-04] MEDS: IPRATROPIUM/ALBUTEROL SULFATE 3 ML AMPUL.NEB NEB SCH ×3 (00:32→12:30)
[2018-03-04] MEDS: diphenhydrAMINE HCL 25 MG TABLET PO PRN (04:19)
[2018-03-04] MEDS: HYDROcodone /APAP 5/325 1 EACH TABLET PO PRN ×3 (04:19→14:59)
[2018-03-04] MEDS: FUROSEMIDE 40 MG/4 ML VIAL IVP SCH ×2 (06:07→13:46)
[2018-03-04] MEDS ORDERED: LURASIDONE HCL 40 MG TABLET PO ONE (09:00)
[2018-03-04] MEDS: ASPIRIN EC 81 MG TABLET.DR PO SCH (09:57)
[2018-03-04] MEDS: CELECOXIB 100 MG CAPSULE PO SCH (09:57)
[2018-03-04] MEDS: VENLAFAXINE HCL 37.5 MG CAP.ER.24H PO SCH (09:57)
[2018-03-04] MEDS: GABAPENTIN 300 MG CAPSULE PO SCH ×2 (09:57→13:31)
[2018-03-04] MEDS: LISINOPRIL 5 MG TABLET PO SCH (09:57)
[2018-03-04] MEDS: DOCUSATE SODIUM 100 MG CAPSULE PO SCH (09:57)
[2018-03-04] MEDS: ATENOLOL 25 MG TABLET PO SCH (09:57)
[2018-03-04] MEDS: LORATADINE 10 MG TABLET PO SCH (09:57)
[2018-03-04] MEDS: SPIRONOLACTONE 25 MG TABLET PO SCH (09:57)
[2018-03-04] MEDS: METOPROLOL TARTRATE 25 MG TABLET PO SCH (09:57)
[2018-03-04] MEDS: METOLAZONE 2.5 MG TABLET PO SCH (09:58)
[2018-03-04] MEDS ORDERED: cefTRIAXone SODIUM 1 GM VIAL ONE (13:08)
--- NOTE | 2018-03-04 14:02 | Discharge Summary ---
Discharge Summary - Discharge Sumary History of Present Illness: 52 year old female was admitted for bilateral lower extremity cellulitis. She was treated with IV Rocephin and compression with brian bandages. Redness, Swelling and wounds are much improved. Patient states that pain is improving as well. She notes she is still having pain with daily dressing changes. She has been largely immobile at home and has general decompensation/weakness. She also has sever morbid obesity with weight of 360 lbs. She will be discharging to [facility] for continued wound care and physical therapy so that she may safely return home. Condition at Discharge: Stable Home Medications: Ambulatory Orders Medication Instructions Recorded Venlafaxine HCl [Effexor Xr] 150 mg PO DAILY #30 av 02/03/13 Lisinopril [Prinivil] 10 mg PO DAILY 07/02/16 Aspirin [Aspir 81] 81 mg PO DAILY u2 04/24/17 Furosemide 80 mg PO BID u2 04/24/17 Cefdinir 300 mg PO BID 7 Days #14 capsule 03/04/18 Celecoxib [Celebrex] 200 mg PO DAILY capsule 03/04/18 Furosemide [Lasix] 40 mg IVP 07,14 vial 03/04/18 Hydroxyzine HCl [Atarax] 25 mg PO BID PRN tablet 03/04/18 Lisinopril [Prinivil] 10 mg PO D tablet 03/04/18 diphenhydrAMINE HCL [Benadryl] 25 mg PO Q4 PRN tablet 03/04/18 Consultations this Visit: None Procedures this Visit: None Allergies/Adverse Reactions: Allergies Allergy/AdvReac Type Severity Reaction Status Date / Time olmesartan medoxomil Allergy Severe Anaphylaxis Verified 03/01/18 13:20 [From Benicar] Penicillins Allergy Severe Anaphylaxis Verified 03/01/18 13:20 Sulfa (Sulfonamide Allergy Intermediate Hives Verified 03/01/18 13:20 Antibiotics) [Sulfa(Sulfonamide Antibiotics)] fluticasone propionate Allergy Mild Rash, mild Verified 03/01/18 13:20 [From Advair Diskus] salmeterol xinafoate Allergy Mild Rash, mild Verified 03/01/18 13:20 [From Advair Diskus] Discharge Summary: General: Patient is a obese 52 year old female. Skin: Scabbed Skin picking sites on upper extremities. Multiple healing wounds on bilateral lower extremities with minimal associated erythema and mild swelling remaining. HEENT: clear Cardiology: RRR Respiratory: CTA Abdominal: Soft, non-tender, normal bowel sounds - Final Diagnosis (1) Bilateral cellulitis of lower leg Problems: Continue daily dressing changes and compression with Brian wraps on discharge. Oral Cefdinir for 7 days on discharge. (2) Morbid obesity Problems: Reduce Caloric intake and increase exercise. (3) Generalized weakness Problems: Physical therapy at [facility] before returning home.
[2018-03-04] MEDS: cefTRIAXone SODIUM 1 GM in 0.9 % SODIUM CHLORIDE 50 ML IV SCH (14:09)
[2018-03-04 15:24] VITALS: BP 142/68
== END 2018-03-04 15:26 | disposition home or self-care (01) | DRG 603 ==
LOC: ED 13:00 → SOUTH 14:45
PROVIDERS: ADMIT Family Medicine; ATTEND Family Medicine
DX: L03.116 Cellulitis of left lower limb (principal); I50.22 Chronic systolic (congestive) heart failure; L03.115 Cellulitis of right lower limb; I10 Essential (primary) hypertension; R73.9 Hyperglycemia, unspecified; E66.01 Morbid (severe) obesity due to excess calories; G47.33 Obstructive sleep apnea (adult) (pediatric)
CPT/HCPCS: 71045; 80053; 83880; 85025; 87040; 87186; 97161; 97165; A9270; J0696; J1650; J1885; J1940; Q0163; 96365; 96375; 99222; 99232; 99238; S1016

== ENCOUNTER 2018-08-03 15:52 | Emergency (ER) | payer MEDICARE, OTHER ==
--- NOTE | 2018-08-03 16:50 | ED Physician Documentation ---
Lower Extremity Problem - HISTORIAN Historian: patient - HPI Stated Complaint: legs broke out Chief Complaint: Lower Extremity Problem Additional Information: Patient presents to ED with a 2 week history of worsening lower extremity pain, redness and open sores (left > right). She states her legs have been weeping and have a foul odor. She had an appointment to see Dr. Gonzalez today, however, the taxi was late picking her up. She was late to the appointment and he would not see her. She denies fever, chills, night sweats. Location of Injury: L leg Timing: still present Duration: constant Where: home Severity: moderate Quality: pain, swelling, tenderness Exacerbated By: movement Relieved By: nothing Associated Symptoms: denies: chest pain, shortness of breath - ROS CONST: denies: fever, chills MS/SKIN/LYMPH: none, ankle swelling GI/: denies: vomiting, nausea EYES/ENT: none NERUO/PSYCH: denies: headache - PAST HX Past History: none PE Risk Factors: hypertension Surgeries/Procedures: none Allergies/Adverse Reactions: Allergies Allergy/AdvReac Type Severity Reaction Status Date / Time olmesartan medoxomil Allergy Severe Anaphylaxis Verified 08/03/18 16:23 [From Benicar] Penicillins Allergy Severe Anaphylaxis Verified 08/03/18 16:23 Sulfa (Sulfonamide Allergy Intermediate Hives Verified 08/03/18 16:23 Antibiotics) [Sulfa(Sulfonamide Antibiotics)] fluticasone propionate Allergy Mild Rash, mild Verified 08/03/18 16:23 [From Advair Diskus] salmeterol xinafoate Allergy Mild Rash, mild Verified 08/03/18 16:23 [From Advair Diskus] Home Medications: Ambulatory Orders Medication Instructions Recorded Aspirin [Aspir 81] 81 mg PO DAILY u2 04/24/17 Lisinopril [Prinivil] 10 mg PO D tablet 03/04/18 diphenhydrAMINE HCL [Benadryl] 25 mg PO Q4 PRN tablet 03/04/18 QUEtiapine FUMARATE [Seroquel] 08/03/18 - SOCIAL HX Smoking History: non-smoker Alcohol Use: none Drug Use: none - FAMILY HX Family History: none - VITAL SIGNS Vital Signs: Vital Signs Temp Pulse Resp BP Pulse Ox 97.9 F 92 H 20 126/73 95 08/03/18 15:59 08/03/18 15:59 08/03/18 15:59 08/03/18 15:59 08/03/18 15:59 - REVIEWED ASSESSMENTS Nursing Assessment Reviewed: Yes Vitals Reviewed: Yes Progress - Progress Progress: [address] Parish, Hospitalist. Agrees with admission. ED Results Lab/Radiology - Lab Results Lab Results: Lab Results 08/03/18 08/03/18 16:55 16:55 WBC 9.50 K/ul K/ul (4.00-12.00) RBC 4.25 M/ul M/ul (3.90-5.20) Hgb 10.5 g/dL L g/dL (12.0-16.0) Hct 33.0 % L % (34.5-46.5) MCV 78.0 fl L fl (80.0-100.0) MCH 24.8 pg L pg (28.0-34.0) MCHC 31.9 g/dL g/dL (30.0-36.0) RDW 14.9 % H % (11.3-14.3) Plt Count 330 K/mm3 K/mm3 (130-400) Neut % (Auto) 67.3 % % (39.0-79.0) Lymph % (Auto) 22.0 % % (16.0-50.0) [place] % (Auto) 6.7 % % (0.0-11.0) Eos % (Auto) 3.7 % % (0.0-6.8) Baso % (Auto) 0.3 (0.0-1.5) Neut # (Auto) 6.4 # k/uL # k/uL (1.4-7.7) Lymph # (Auto) 2.1 # k/uL # k/uL (0.6-4.0) [place] # (Auto) 0.6 # k/uL # k/uL (0.0-0.9) Eos # (Auto) 0.4 # k/uL # k/uL (0.0-0.6) Baso # (Auto) 0.0 # k/uL # k/uL (0.0-0.5) Sodium 136 mmol/L mmol/L (136-145) Potassium 4.2 mmol/L mmol/L (3.5-5.1) Chloride 101 mmol/L mmol/L (98-107) Carbon Dioxide 32 mmol/L H mmol/L (22-30) BUN 17 mg/dL mg/dL (7-17) Creatinine 0.60 mg/dL mg/dL (0.52-1.04) Estimated Creat Clear 316 Est GFR ( Amer) > 60 (60 - ) Est GFR (Non-Af Amer) > 60 (60 - ) Glucose 122 mg/dL H mg/dL (74-106) Calcium 8.9 mg/dL mg/dL (8.4-10.2) Total Bilirubin 0.4 mg/dL mg/dL (0.2-1.3) AST 27 U/L U/L (15-46) ALT 19 U/L U/L (13-69) Alkaline Phosphatase 89 U/L U/L (38-126) Total Protein 7.5 g/dL g/dL (6.3-8.2) Albumin 4.1 g/dL g/dL (3.5-5.0) - Orders Orders: ED Orders Category Date Time Status Place IV Lock 1T Care 08/03/18 16:36 Active BLOOD CULTURE Stat Lab 08/03/18 17:50 Received CBC/PLATELET/DIFF Routine Lab 08/03/18 16:55 Completed CMP Routine Lab 08/03/18 16:55 Completed WOUND CULTURE Stat Lab 08/03/18 16:55 Received Cefazolin Sodium/Dextrose,Iso [Cefazolin 1 G/50 ml- Med 08/03/18 17:12 Discon tinued Dextrose] 1 gm IV NOW ONE Clindamycin Phosphate/D5w [Clindamycin-D5w 600 mg/50 ml Med 08/03/18 17:15 Discontinued ] 600 mg IV NOW ONE Dextrose 5 % in Water [D5w] 100 ml Med 08/03/18 18:00 Discontinued IV .STK-MED HYDROcodone /APAP 5/325 [[place] 5/325] Med 08/03/18 18:07 Discontinued 1 each PO NOW ONE Vancomycin HCl [Vancocin] 1.25 gm Med 08/03/18 17:10 Active 0.9 % Sodium Chloride [Normal Saline] 500 ml IV NOW Lower Extremity Problem - EXAM General Appearance: no distress Hips: bilateral hip: non-tender Legs: right: other (5 cm open weeping wound), bilateral: swelling Knees: bilateral: non-tender, normal inspection Ankle: bilateral: swelling (+2 pitting edema bilaterally) Foot: bilateral foot: swelling (+2 pitting edema bilaterally) Neuro/Tendon: normal sensation, normal motor functions EENT: MAGNO RESPIRATORY: other (diminished breath sounds bilaterally) CVS: reg rate & rhythm, heart sounds normal JOINT: painful VASCULAR: no vascular compromise, pulses full/equal NEURO/PSYCH: oriented X3 SKIN: normal color BACK: normal inspection Discharge Clincal Impression: Cellulitis of left lower extremity Ulcer of left lower leg Qualifiers: Non-pressure ulcer stage: with fat layer exposed Qualified Code(s): L97.922 - Non-pressure chronic ulcer of unspecified part of left lower leg with fat layer exposed Referrals: Morro Gonzalez MD [Primary Care Provider] - 2 Days Condition: Fair Disposition: 02 XFER SHT-TRM HOSP Decision to Admit: [id number] Date of Decison to Admit: 08/03/18 Decision Time: 18:47
[2018-08-03] MEDS ORDERED: VANCOMYCIN HCL 1.25 GM in 0.9 % SODIUM CHLORIDE 500 ML IV ONE (17:10)
[2018-08-03] MEDS ORDERED: CEFAZOLIN SODIUM/DEXTROSE,ISO 1 GM/50 ML PIGGYBACK IV ONE (17:12)
[2018-08-03] MEDS ORDERED: CLINDAMYCIN PHOSPHATE/D5W 600 MG/50 ML PIGGYBACK IV ONE (17:15)
[2018-08-03 17:22] LABS: MEAN CORPUSCULAR HEMOGLOBIN 24.8 pg (28.0-34.0)
[2018-08-03 17:23] LABS: BASOPHILS % 0.3 (0.0-1.5); EOSINOPHILS % 3.7 % (0.0-6.8); MONOCYTES % 6.7 % (0.0-11.0); NEUTROPHILS # 6.4 # k/uL (1.4-7.7)
[2018-08-03 17:30] LABS: eGFR (Non-African) > 60
[2018-08-03] MEDS ORDERED: DEXTROSE 5 % IN WATER 100 ML IV ONE (18:00)
[2018-08-03] MEDS ORDERED: HYDROcodone /APAP 5/325 1 EACH TABLET PO ONE (18:07)
[2018-08-03 19:31] VITALS: BP 137/60
== END 2018-08-03 19:10 | disposition short-term general hospital (02) ==
LOC: ED 15:52
DX: L03.116 Cellulitis of left lower limb (principal); L97.922 Non-pressure chronic ulcer of unspecified part of left lower leg with fat layer exposed; B96.4 Proteus (mirabilis) (morganii) as the cause of diseases classified elsewhere; B95.2 Enterococcus as the cause of diseases classified elsewhere; B95.61 Methicillin susceptible Staphylococcus aureus infection as the cause of diseases classified elsewhere; Z16.24 Resistance to multiple antibiotics
CPT/HCPCS: 36415; 80053; 85025; 87040; 87070; 87186; 96374; 96375; 99285; A9270; J3370; J7060; S1016

== ENCOUNTER 2019-01-18 15:10 | Inpatient (IN) | payer OTHER ==
[2019-01-18] MEDS ORDERED: HYDROcodone /APAP 10/325 1 EACH TABLET PO ONE ×3 (17:00→22:20)
[2019-01-18] MEDS ORDERED: cefTRIAXone SODIUM 1 GM INJ ONE (17:00)
[2019-01-18] MEDS ORDERED: 0.9 % SODIUM CHLORIDE 50 ML IV.SOLN IV ONE (17:00)
[2019-01-18] MEDS ORDERED: hydrOXYzine HCL 25 MG TABLET PO ONE (22:20)
[2019-01-18] MEDS ORDERED: GABAPENTIN 300 MG CAPSULE ONE (22:20)
[2019-01-18] MEDS ORDERED: NYSTATIN 15 GM TOPICAL POWDER BOTTLE TP ONE (22:20)
[2019-01-18] MEDS ORDERED: QUEtiapine FUMARATE 25 MG TABLET PO ONE (22:20)
[2019-01-18] MEDS ORDERED: KETOROLAC TROMETHAMINE 30 MG/1ML VIAL ONE (22:20)
[2019-01-19] MEDS ORDERED: HYDROcodone /APAP 10/325 1 EACH TABLET PO ONE ×7 (02:19→22:11)
[2019-01-19] MEDS ORDERED: hydrOXYzine HCL 25 MG TABLET PO ONE ×3 (07:59→22:11)
[2019-01-19] MEDS ORDERED: GABAPENTIN 300 MG CAPSULE ONE ×4 (07:59→22:11)
[2019-01-19] MEDS ORDERED: VENLAFAXINE HCL 37.5 MG CAP.ER.24H PO ONE ×2 (07:59→10:13)
[2019-01-19] MEDS ORDERED: LISINOPRIL 10 MG TABLET PO ONE (07:59)
[2019-01-19] MEDS ORDERED: LISINOPRIL 5 MG TABLET ONE (08:00)
[2019-01-19] MEDS ORDERED: POLYETHYLENE GLYCOL 3350 17 GM POWD.PACK ONE (08:00)
[2019-01-19] MEDS ORDERED: ATENOLOL 25 MG TABLET PO ONE (08:00)
[2019-01-19] MEDS ORDERED: cefTRIAXone SODIUM 1 GM INJ ONE (18:12)
[2019-01-19] MEDS ORDERED: 0.9 % SODIUM CHLORIDE 50 ML IV.SOLN IV ONE (18:12)
[2019-01-19] MEDS ORDERED: QUEtiapine FUMARATE 25 MG TABLET PO ONE (22:11)
[2019-01-19] MEDS ORDERED: KETOROLAC TROMETHAMINE 30 MG/1ML VIAL ONE (22:11)
[2019-01-20] MEDS ORDERED: ATENOLOL 25 MG TABLET PO ONE (07:59)
[2019-01-20] MEDS ORDERED: POLYETHYLENE GLYCOL 3350 17 GM POWD.PACK ONE (12:41)
[2019-01-20] MEDS ORDERED: hydrOXYzine HCL 25 MG TABLET PO ONE ×2 (12:41→20:05)
[2019-01-20] MEDS ORDERED: HYDROcodone /APAP 10/325 1 EACH TABLET PO ONE ×2 (12:41→20:05)
[2019-01-20] MEDS ORDERED: GABAPENTIN 300 MG CAPSULE ONE ×2 (12:41→20:05)
[2019-01-20] MEDS ORDERED: 0.9 % SODIUM CHLORIDE 50 ML IV.SOLN IV ONE (15:15)
[2019-01-20] MEDS ORDERED: cefTRIAXone SODIUM 1 GM INJ ONE (15:15)
[2019-01-20] MEDS ORDERED: KETOROLAC TROMETHAMINE 30 MG/1ML VIAL ONE ×2 (15:15→20:05)
[2019-01-20] MEDS ORDERED: QUEtiapine FUMARATE 25 MG TABLET PO ONE (20:05)
[2019-01-21] MEDS ORDERED: KETOROLAC TROMETHAMINE 30 MG/1ML VIAL ONE ×2 (03:51→17:00)
[2019-01-21] MEDS ORDERED: HYDROcodone /APAP 10/325 1 EACH TABLET PO ONE ×4 (03:51→20:33)
[2019-01-21] MEDS ORDERED: GABAPENTIN 300 MG CAPSULE ONE ×3 (09:16→20:33)
[2019-01-21] MEDS ORDERED: VENLAFAXINE HCL 37.5 MG CAP.ER.24H PO ONE (09:16)
[2019-01-21] MEDS ORDERED: LISINOPRIL 10 MG TABLET PO ONE (09:16)
[2019-01-21] MEDS ORDERED: ATENOLOL 25 MG TABLET PO ONE (09:16)
[2019-01-21] MEDS ORDERED: POLYETHYLENE GLYCOL 3350 17 GM POWD.PACK ONE (13:50)
[2019-01-21] MEDS ORDERED: ACETAMINOPHEN 325 MG TABLET ONE (13:50)
[2019-01-21] MEDS ORDERED: cefTRIAXone SODIUM 1 GM INJ ONE (17:00)
[2019-01-21] MEDS ORDERED: 0.9 % SODIUM CHLORIDE 50 ML IV.SOLN IV ONE (17:00)
[2019-01-21] MEDS ORDERED: ENOXAPARIN SODIUM 30 MG/0.3 ML DISP.SYRIN SQ ONE (17:00)
[2019-01-21] MEDS ORDERED: hydrOXYzine HCL 25 MG TABLET PO ONE (20:33)
[2019-01-21] MEDS ORDERED: QUEtiapine FUMARATE 25 MG TABLET PO ONE (20:33)
[2019-01-22] MEDS ORDERED: KETOROLAC TROMETHAMINE 30 MG/1ML VIAL ONE ×4 (00:10→22:00)
[2019-01-22] MEDS ORDERED: HYDROcodone /APAP 10/325 1 EACH TABLET PO ONE ×4 (04:56→20:19)
[2019-01-22] MEDS ORDERED: ACETAMINOPHEN 325 MG TABLET ONE (07:43)
[2019-01-22] MEDS ORDERED: VENLAFAXINE HCL 37.5 MG CAP.ER.24H PO ONE (07:43)
[2019-01-22] MEDS ORDERED: LISINOPRIL 10 MG TABLET PO ONE (08:00)
[2019-01-22] MEDS ORDERED: GABAPENTIN 300 MG CAPSULE ONE ×3 (08:00→20:19)
[2019-01-22] MEDS ORDERED: ATENOLOL 25 MG TABLET PO ONE (08:00)
[2019-01-22] MEDS ORDERED: FLUCONAZOLE 150 MG TABLET PO ONE (11:00)
[2019-01-22] MEDS ORDERED: NYSTATIN 15 GM TOPICAL POWDER BOTTLE TP ONE (11:00)
[2019-01-22] MEDS ORDERED: POLYETHYLENE GLYCOL 3350 17 GM POWD.PACK ONE (11:00)
[2019-01-22] MEDS ORDERED: 0.9 % SODIUM CHLORIDE 50 ML IV.SOLN IV ONE (15:05)
[2019-01-22] MEDS ORDERED: cefTRIAXone SODIUM 1 GM INJ ONE (15:05)
[2019-01-22] MEDS ORDERED: ENOXAPARIN SODIUM 30 MG/0.3 ML DISP.SYRIN SQ ONE (15:05)
[2019-01-22] MEDS ORDERED: QUEtiapine FUMARATE 25 MG TABLET PO ONE (20:19)
[2019-01-22] MEDS ORDERED: hydrOXYzine HCL 25 MG TABLET PO ONE (22:00)
[2019-01-23] MEDS ORDERED: HYDROcodone /APAP 10/325 1 EACH TABLET PO ONE ×2 (03:43→08:00)
[2019-01-23] MEDS ORDERED: ATENOLOL 25 MG TABLET PO ONE (08:00)
[2019-01-23] MEDS ORDERED: LISINOPRIL 10 MG TABLET PO ONE (08:00)
[2019-01-23] MEDS ORDERED: GABAPENTIN 300 MG CAPSULE ONE (08:00)
[2019-01-23] MEDS ORDERED: VENLAFAXINE HCL 37.5 MG CAP.ER.24H PO ONE (08:00)
[2019-02-02 11:36] LABS: eGFR (Non-African) > 60
[2019-02-02 11:37] LABS: BASOPHILS % 0.6 % (0.0-1.5)
== END 2019-01-23 10:30 | DRG 603 ==
LOC: SOUTH 15:10
PROVIDERS: ADMIT Family Medicine; ATTEND Family Medicine
DX: L03.116 Cellulitis of left lower limb (principal); Z68.43 Body mass index [BMI] 50.0-59.9, adult; L03.115 Cellulitis of right lower limb; E66.01 Morbid (severe) obesity due to excess calories; J44.9 Chronic obstructive pulmonary disease, unspecified; R73.03 Prediabetes; G47.33 Obstructive sleep apnea (adult) (pediatric); I11.0 Hypertensive heart disease with heart failure; F41.0 Panic disorder [episodic paroxysmal anxiety]; I50.9 Heart failure, unspecified; F31.9 Bipolar disorder, unspecified; F32.9 Major depressive disorder, single episode, unspecified; G62.9 Polyneuropathy, unspecified; Z79.899 Other long term (current) drug therapy; Z88.0 Allergy status to penicillin; Z88.2 Allergy status to sulfonamides; Z87.891 Personal history of nicotine dependence; Z91.19 Patient's noncompliance with other medical treatment and regimen; Z88.8 Allergy status to other drugs, medicaments and biological substances
CPT/HCPCS: 36415; 80053; 85025; J0696; J1650; J1885; S1016

== ENCOUNTER 2019-07-21 13:51 | Emergency (ER) | payer OTHER ==
--- NOTE | 2019-07-21 14:00 | ED Physician Documentation ---
General Adult - HISTORIAN Historian: patient - HPI Stated Complaint: bilateral lower leg pain, swelling and drainage Chief Complaint: Lower Extremity Problem Onset: other (6 months ) Timing: still present Severity: mild Further Comments: yes (She has had issues with leg wounds, drainage and pain x 6 months. She has had specialist - wound care and Dr Gonzalez. She is here today because she had follow up with Dr Gonzalez and she did not make it so she came in since she was out in town.) - ROS CONST: no problems EYES/ENT: none CVS/RESP: none GI/: none MS/SKIN/LYMPH: other (drainage from bilateral lower legs with ulcers and odor - for 6 months ) - PAST HX Past History: CHF Other History: diabetes Type 2 Immunizations: UTD Allergies/Adverse Reactions: Allergies Allergy/AdvReac Type Severity Reaction Status Date / Time olmesartan medoxomil Allergy Severe Anaphylaxis Verified 07/21/19 16:25 [From Benicar] Penicillins Allergy Severe Anaphylaxis Verified 07/21/19 16:25 Sulfa (Sulfonamide Allergy Intermediate Hives Verified 07/21/19 16:25 Antibiotics) [Sulfa(Sulfonamide Antibiotics)] fluticasone propionate Allergy Mild Rash, mild Verified 07/21/19 16:25 [From Advair Diskus] salmeterol xinafoate Allergy Mild Rash, mild Verified 07/21/19 16:25 [From Advair Diskus] Home Medications: Ambulatory Orders Medication Instructions Recorded Aspirin [Aspir 81] 81 mg PO DAILY u2 04/24/17 Gabapentin 300 mg PO SEE.INSTRUCTIONS av 12/30/18 - SOCIAL HX Smoking History: quit less than 1 year Alcohol Use: none Drug Use: none - FAMILY HX Family History: No - VITAL SIGNS Vital Signs: Vital Signs Temp Pulse Resp BP Pulse Ox 137/60 08/03/18 19:29 - REVIEWED ASSESSMENTS Nursing Assessment Reviewed: Yes Vitals Reviewed: Yes Progress - Progress Progress: 1535: discussed case with Dr Gonzalez - outpt treatment and follow up with him early next week DG General Adult Physical Exam - PHYSICAL EXAM GENERAL APPEARANCE: no distress EENT: eye inspection normal, no signs of dehydration NECK: normal inspection RESPIRATORY: no resp distress, chest non-tender, breath sounds normal CVS: reg rate & rhythm, heart sounds normal ABDOMEN: soft, normal bowel sounds, no distension SKIN: other (bilateral lower legs with open areas and clear odorus drainage from the lower legs. various areas open and in different stages of openess ) EXTREMITIES: non-tender, edema NEURO: oriented X3 Discharge Clincal Impression: Bilateral cellulitis of lower leg Referrals: Morro Gonzalez MD [Primary Care Provider] - 2 Days Comments: 1. Clindamycin 300 mg take 1 by mouth four times per day x 10 days 2. Tramadol 50 mg take 1 by mouth every 8 hours as needed for pain 3. Keep areas clean 4. Call Dr Gonzalez office TODAY for appointment early next week 5. Return to ER for any increased concerns Condition: Stable Disposition: 01 HOME, SELF-CARE Decision to Admit: NO Date of Decison to Admit: 07/21/19 Decision Time: 15:39
[2019-07-21 14:46] LABS: eGFR (Non-African) > 60
[2019-07-21 14:52] LABS: BASOPHILS % 0.2 % (0.0-1.5); NEUTROPHILS # 4.6 # k/uL (1.4-7.7); SEGMENTED NEUTROPHILS % 62 % (39-79)
--- NOTE | 2019-07-21 15:08 | Diagnostic Imaging Report ---
PATIENT MR#: [id number] PATIENT PATIENT NAME: ZEINAB BOWEN DATE OF : 1965 REFERRING PHYSICIAN: Ambika Hernandez EXAM DATE: 07/21/2019 ACCESSION NUMBER: [id number] EXAM DESCRIPTION: CHEST 1VIEW Portable chest History: Swollen legs Portable chest dated July 21, 2019 demonstrates normal heart size. Pulmonary vascularity is norm al. There is no confluent infiltrate or pleural effusion. Impression: No active disease. Read by: Dr. Bee Brooks Transcribed by: Transcribed Date: Electronically signed by: Dr. Bee Brooks Date signed: 07/21/2019 3:08:01 PM
[2019-07-21] MEDS: fentaNYL CITRATE/PF 100 MCG/2 ML INJ. IVP ONE (15:18)
[2019-07-21 16:29] VITALS: BP 168/87
== END 2019-07-21 15:47 | disposition home or self-care (01) ==
LOC: ED 13:51
DX: L03.115 Cellulitis of right lower limb (principal); L03.116 Cellulitis of left lower limb
CPT/HCPCS: 80053; 83605; 83880; 85025; 87040; 87070; J3010; S1016

== ENCOUNTER 2019-07-31 16:46 | Outpatient (CLI) | payer OTHER | END 2019-07-31 16:51 | LOC: LABRHC 16:46 | PROVIDERS: ATTEND Family Medicine | DX: L03.119 Cellulitis of unspecified part of limb (principal) | CPT/HCPCS: 87070; 87186 ==